=== PATIENT | male | born 1955 ===

== ENCOUNTER 2024-09-07 13:23 | Inpatient (IN) ==
[2024-09-07 14:04] LABS: Hematocrit (blood only) 29.1 % (42.0-52.0); Mean Corpuscular Hemoglobin 31.1 pg (25.0-34.0); Mean Corpuscular Hgb Conc 34.4 g/dL (32.0-36.0); Mean Corpuscular Volume 90.4 fL (80.0-100.0); RDW Coefficient of Variation 14.6 % (11.5-14.5); RDW Standard Deviation 47.3 fL (36.4-46.3); Red Blood Count 3.22 M/uL (4.70-6.10); White Blood Count 5.52 K/ul (4.8-10.8)
[2024-09-07 14:15] LABS: Albumin Level 3.8 gm/dl (3.4-5.0); Bilirubin Direct 0.3 mg/dl (0-0.2); Bilirubin,Total 0.5 mg/dl (0.2-1.0); Calcium 13.1 mg/dl (8.6-10.3); Creatinine Clr Calc Pharmacy 33.5 ml/min; Total Protein 8.9 gm/dl (6.0-8.3)
[2024-09-07] MEDS: SODIUM CHLORIDE 0.9% 1,000 ML IV ONE (14:23)
[2024-09-07 14:33] LABS: Basophils # (auto) 0.01 K/uL (0.00-0.20); Basophils % (auto) 0.2 %; Eosinophils # (auto) 0.03 K/uL (0.00-0.50); Eosinophils % (auto) 0.5 %; Immature Granulocytes % (auto) 1.8 %; Lymphocytes # (auto) 3.56 K/uL (1.20-3.40); Lymphocytes % (auto) 64.5 %; Monocytes # (auto) 0.37 K/uL (0.11-0.59); Monocytes % (auto) 6.7 %; Neutrophils # (auto) 1.45 K/uL (1.40-6.50); Neutrophils % (auto) 26.3 %; Nucleated RBC # (auto) 0.02 K/uL (0.00-0.12); Nucleated RBC % (auto) 0.4 %; Platelet Count 6 K/uL (130-400)
--- NOTE | 2024-09-07 14:48 | XRay Report ---
INDICATION: Shortness of breath. TECHNIQUE: Frontal radiograph of the chest. COMPARISON: None. FINDINGS: Low inspiratory depth. The cardiomediastinal silhouette and pulmonary vasculature appear within normal limits. Subsegmental atelectasis in the lung bases. No infiltrate, pleural effusion or pneumothorax. No acute osseous abnormality evident. IMPRESSION: No acute cardiopulmonary process. Electronically signed by Alex Ling 09-07-2024 2:46 PM
--- NOTE | 2024-09-07 15:26 | CT Scan Report ---
EXAM: CT Chest Abdomen and Pelvis Without Intravenous Contrast INDICATION: Right flank pain. Dizziness. Multiple myeloma. TECHNIQUE: Axial computed tomography images of the chest, abdomen and pelvis without intravenous contrast. Sagittal and coronal reformatted images were created and reviewed. This CT exam was performed using one or more of the following dose reduction techniques: automated exposure control, adjustment of the mA and/or kV according to patient size, and/or use of iterative reconstruction technique. COMPARISON: No relevant prior studies available. FINDINGS: Limitations: None. CHEST: Lungs and pleural spaces: No abnormality noted. No mass. No consolidation. No significant effusion. No pneumothorax. Heart: Mild cardiomegaly. Mediastinum: No abnormality noted. Thyroid: No abnormality noted. ABDOMEN: Liver: Normal size and contour. Hypodense typical of steatosis. No mass or ductal dilation. Gallbladder and bile ducts: Suspect small layering gallstones or sludge. The common bile duct is normal caliber without calcified stone. Pancreas: No pancreatic mass, calcification, inflammation or ductal dilation noted. Spleen: No significant abnormality noted. Adrenals: No significant abnormality noted. Kidneys and ureters: There is mild right hydroureteronephrosis. No stone. There is bilateral perinephric and renal cortical scarring. No urinary gas. No perinephric fluid. Stomach and bowel: No distension or mucosal thickening. No inflammation noted. PELVIS: Appendix: Well seen and appears normal. Bladder: Appears normal for the degree of filling. No stones or inflammation. No large mass. Masses may not be detected in the absence of opacification. Reproductive: No significant abnormality noted. CHEST, ABDOMEN and PELVIS: Intraperitoneal space: No free air. No significant fluid collection. Retroperitoneal space: No abnormality noted. No fluid collection. Bones/joints: There is a 2.8 x 2.0 cm lytic lesion in the right iliac bone with thinning of the cortex. No pathologic fracture noted. Mild degenerative changes noted in the spine. Soft tissues: No significant abnormality noted. Vasculature: There is diffuse atherosclerosis of the aorta and branches. There is severe coronary calcification. No aneurysm. Lymph nodes: No enlarged lymph nodes. IMPRESSION: 1. Mild right hydroureteronephrosis without stone. Consider recently passed stone or pyelonephritis. There is bilateral renal scarring. 2. Lytic lesion right iliac bone consistent with multiple myeloma. No pathologic fracture. 3. No acute abnormality in the thorax. 4. Suspect small layering gallstones or sludge. ACT 112: Negative or not required by law. Electronically signed by Lory La 09-07-2024 3:26 PM
--- NOTE | 2024-09-07 15:29 | CT Scan Report ---
EXAM: CT Head Without Intravenous Contrast INDICATION: Right flank pain and dizziness. TECHNIQUE: Axial computed tomography images of the head/brain without intravenous contrast. Sagittal and/or coronal reformats are provided. Sagittal and coronal reformatted images were created and reviewed. This CT exam was performed using one or more of the following dose reduction techniques: automated exposure control, adjustment of the mA and/or kV according to patient size, and/or use of iterative reconstruction technique. COMPARISON: No relevant prior studies available. FINDINGS: Limitations: None. Brain and extra-axial spaces: There is age appropriate cortical atrophy and chronic ischemic periventricular white matter hypodensity. No acute infarct, hemorrhage or mass noted. Bones/joints: Lytic lesion left temporal and frontal bones. No pathologic fracture noted. There are multiple small lytic lesions in the right calvarium. Soft tissues: No significant abnormality noted. Vasculature: No acute abnormality noted. Sinuses: There is an approximate 2 cm retention cyst or polyp in the left maxillary sinus. There is trace thickening right maxillary sinus. No sinus fluid. Mastoid air cells: No mastoid effusion. Orbits: No significant abnormality noted. IMPRESSION: 1. Cerebral atrophy. No acute changes. 2. Lytic myelomatous lesions noted in the skull particularly in the left frontal and parietal bones. ACT 112: Negative or not required by law. Electronically signed by Lory La 09-07-2024 3:28 PM
[2024-09-07] MEDS: SODIUM CHLORIDE 0.9% 1,000 ML IV SCH (15:47)
[2024-09-07] MEDS ORDERED: SODIUM CHLORIDE 0.9% 50 ML IV PRN (16:19)
[2024-09-07] MEDS ORDERED: SODIUM CHLORIDE 0.9% 100 ML IV PRN (16:19)
--- NOTE | 2024-09-07 16:43 | History & Physical Report ---
Date of Service September 07, 2024 Assessment & Plan (1) LAURI (acute kidney injury): (2) Abnormal CT scan: (3) Multiple myeloma: Plan Mr. Baeza is a 68 year old gentleman with past medical history remarkable for Multiple Myeloma undergoing active treatment s/p ASCT ~2023 (daratumumab, Velcade, dexamethasone), DMTII, HTN, HLD and GERD presented to [facility] ED due to flank pain and is admitted for management of thrombocytopenia, hypercalcemia, and LAURI. #Hypercalcemia #LAURI #Flank pain CT with perinephric stranding, ?infection likely contributing to symptoms Pyelonephritis? UA ordered Cefepime q12 empirically Potentially related to relaspe of MM given hypercalcemia and renal insufficiency trend ca q6 hours s/p zolendronic acid and calcitonin Hematology following IVF @ 200cc/hr Urology: ?infection v obstructive/stone passing, further imaging or intervention #Multiple myeloma, concern for relapse #Bicytopenia anemia likely iso MM, platelets 6 at this time s/p 1 U plt Trend labs, transfuse platelets <10 and hgb < 7 started on Decadron 40mg IV for <M & thrombocytopenia acyclovir bid held iso renal insufficency, resume as able #Insomnia ativan 0.5mg qhs #Diabetes Mellitus Type II Metformin 500mg BID, glipizide 5mg daily A1C ordered SSI #HTN lisinopril 10mg Holding iso LAURI Labetolol prn for SBP > 175mmhg #Depression Continue mirtazipine 15mg qhs continue escitalopram 20mg #GERD priolsec 40mg DVT ppx: Contraindicated SCDs iso thrombocytopenia and chemical ppx CI due to same Full code per discussion with patient Admission and Anticipated Discharge Date Admission Date: Time spent evaluating patient, direct bedside care, chart review, placing orders, interpretation of diagnostic studies, discussion with consultants, patient, and family members, as well as other required patient management activities is 75 minutes. History of Present Illness Chief Complaint: Flank pain Primary Care Provider: NO PCP Mr. Baeza is a 68 year old gentleman with past medical history remarkable for Multiple Myeloma undergoing active treatment s/p ASCT ~2023 (daratumumab, Velcade, dexamethasone), DMTII, HTN, HLD and GERD presented to [facility] ED due to flank pain. Patient states that flank pain started 2 days ago. He tried to "brace through it" but it became more notable. He denies dysuria or other urinary symptoms, but does note that he experienced dark urine. Ultimately, the flank pain became so severe he presented to ED. He denies fevers or chills, however at time of exam noted to have diaphoresis and pallor. Denies constipation, sob, palpitations, chest pain, or other acute concerns In the ED, vitals were notable for BP of 140-180s, HR of 80-90s and O2 sat of 96 on room air Imaging revealed mild hydroureteronephrosis without stone, bilateral perinephric stranding, right iliac lytic lesion ct head w/o bleed, multiple lytic lesions Labs with anemia 10, plt 6, Cr 2.38, glucose 241, calcium 13.1 EKG NSR ED interventions: 2L NS, platelets, calcitonin, zolendric acid, Decadron 40 IV Consultants: Hematology Patient to be admitted to PCU for further evaluation and management of LAURI, thrombocytopenia is Multiple Myeloma Allergies Allergy/AdvReac Type Severity Reaction Status Date / Time Penicillins Allergy Rash Verified 09/07/24 15:48 Home Medications Medication Instructions Recorded Confirmed Type acyclovir 200 mg capsule 400 mg BID 09/07/24 09/07/24 History escitalopram oxalate 20 mg tablet 20 mg DAILY 09/07/24 09/07/24 History glipizide 5 mg tablet, extended 5 mg PO DAILY 09/07/24 09/07/24 History release 24 hr lisinopril 10 mg tablet 10 mg DAILY 09/07/24 09/07/24 History lorazepam 0.5 mg tablet 0.5 mg PM 09/07/24 09/07/24 History metformin 500 mg tablet 500 mg BID 09/07/24 09/07/24 History mirtazapine 15 mg tablet 15 mg PM 09/07/24 09/07/24 History omeprazole 40 mg capsule,delayed 40 mg QAM 09/07/24 09/07/24 History release Past Med/Surg History Problem List (Updated 09/07/24 @ 18:54 by Belkys Morrison MD) Thrombocytopenia Hypercalcemia of malignancy Multiple myeloma Abnormal CT scan LAURI (acute kidney injury) Medical History (Updated 09/07/24 @ 18:54 by Belkys Morrison MD) Diabetes 1.5, managed as type 2 Depression GERD (gastroesophageal reflux disease) HLD (hyperlipidemia) Hypertension Social History Smoking Status: Never smoker Feels Safe at Home: Yes Review of Systems Review of Systems: All systems reviewed & are unremarkable except as noted in HPI & below Physical Exam Physical Exam: GENERAL APPEARANCE: AxOx4, ill appearing gentleman HEENT: NC, AT. MMM. EOMI, clear conjunctiva, oropharynx clear. NECK: Supple without lymphadenopathy. No stiffness or restricted ROM. HEART: Normal rate and regular rhythm, normal S1/S1, no m/r/g LUNGS: CTAB, moving air well. No crackles or wheezes are heard. ABDOMEN: Soft, nontender, nondistended with good bowel sounds heard. BACK: CVAT + BL. EXTREMITIES: Without cyanosis, clubbing or edema. NEUROLOGICAL: Grossly nonfocal. Alert and oriented, moving all 4 extremities. CN not formally tested but appear grossly intact. Skin: diaphoretic pallor Results & Data Results & Data Vital Signs (Past 12 Hours) Vital Signs Temp Pulse Pulse Resp BP BP Pulse Ox 09/07/24 15:15 91 H 20 149/83 H 95 09/07/24 15:11 90 09/07/24 15:06 89 31 H 95 09/07/24 14:45 133/73 09/07/24 14:15 87 L 09/07/24 14:09 92 H 17 145/71 H 95 09/07/24 13:27 36.6 C 95 H 16 144/82 H 95 O2 Del Method O2 Flow Rate 09/07/24 15:15 Room Air 09/07/24 15:11 09/07/24 15:06 Nasal Cannula 2 09/07/24 14:45 09/07/24 14:15 Room Air 09/07/24 14:09 Room Air 09/07/24 13:27 Room Air Laboratory Results Short CBC 09/07/24 Range/Units 13:41 WBC 5.52 (4.8-10.8) K/ul Hgb 10.0 L (14.0-18.0) g/dl Hct 29.1 L (42.0-52.0) % Plt Count 6 L* (130-400) K/uL BMP 09/07/24 13:41 Sodium 135 L Potassium 4.0 Chloride 100 Carbon Dioxide 24 BUN 38 H Creatinine 2.38 H Glucose 241 H Calcium 13.1 H* Liver Function 09/07/24 Range/Units 13:41 Total Bilirubin 0.5 (0.2-1.0) mg/dl Direct Bilirubin 0.3 H (0-0.2) mg/dl AST 23 (13-39) U/L ALT 9 (7-52) U/L Alkaline Phosphatase 83 (34-104) U/L Albumin 3.8 (3.4-5.0) gm/dl Diagnostic Findings Abdomen/Pelvis CT 09/07/24 14:22 EXAM: CT Chest Abdomen and Pelvis Without Intravenous Contrast INDICATION: Right flank pain. Dizziness. Multiple myeloma. TECHNIQUE: Axial computed tomography images of the chest, abdomen and pelvis without intravenous contrast. Sagittal and coronal reformatted images were created and reviewed. This CT exam was performed using one or more of the following dose reduction techniques: automated exposure control, adjustment of the mA and/or kV according to patient size, and/or use of iterative reconstruction technique. COMPARISON: No relevant prior studies available. FINDINGS: Limitations: None. CHEST: Lungs and pleural spaces: No abnormality noted. No mass. No consolidation. No significant effusion. No pneumothorax. Heart: Mild cardiomegaly. Mediastinum: No abnormality noted. Thyroid: No abnormality noted. ABDOMEN: Liver: Normal size and contour. Hypodense typical of steatosis. No mass or ductal dilation. Gallbladder and bile ducts: Suspect small layering gallstones or sludge. The common bile duct is normal caliber without calcified stone. Pancreas: No pancreatic mass, calcification, inflammation or ductal dilation noted. Spleen: No significant abnormality noted. Adrenals: No significant abnormality noted. Kidneys and ureters: There is mild right hydroureteronephrosis. No stone. There is bilateral perinephric and renal cortical scarring. No urinary gas. No perinephric fluid. Stomach and bowel: No distension or mucosal thickening. No inflammation noted. PELVIS: Appendix: Well seen and appears normal. Bladder: Appears normal for the degree of filling. No stones or inflammation. No large mass. Masses may not be detected in the absence of opacification. Reproductive: No significant abnormality noted. CHEST, ABDOMEN and PELVIS: Intraperitoneal space: No free air. No significant fluid collection. Retroperitoneal space: No abnormality noted. No fluid collection. Bones/joints: There is a 2.8 x 2.0 cm lytic lesion in the right iliac bone with thinning of the cortex. No pathologic fracture noted. Mild degenerative changes noted in the spine. Soft tissues: No significant abnormality noted. Vasculature: There is diffuse atherosclerosis of the aorta and branches. There is severe coronary calcification. No aneurysm. Lymph nodes: No enlarged lymph nodes. IMPRESSION: 1. Mild right hydroureteronephrosis without stone. Consider recently passed stone or pyelonephritis. There is bilateral renal scarring. 2. Lytic lesion right iliac bone consistent with multiple myeloma. No pathologic fracture. 3. No acute abnormality in the thorax. 4. Suspect small layering gallstones or sludge. ACT 112: Negative or not required by law. Electronically signed by Lory La 09-07-2024 3:[address] 09/07/24 14:23 EXAM: CT Chest Abdomen and Pelvis Without Intravenous Contrast INDICATION: Right flank pain. Dizziness. Multiple myeloma. TECHNIQUE: Axial computed tomography images of the chest, abdomen and pelvis without intravenous contrast. Sagittal and coronal reformatted images were created and reviewed. This CT exam was performed using one or more of the following dose reduction techniques: automated exposure control, adjustment of the mA and/or kV according to patient size, and/or use of iterative reconstruction technique. COMPARISON: No relevant prior studies available. FINDINGS: Limitations: None. CHEST: Lungs and pleural spaces: No abnormality noted. No mass. No consolidation. No significant effusion. No pneumothorax. Heart: Mild cardiomegaly. Mediastinum: No abnormality noted. Thyroid: No abnormality noted. ABDOMEN: Liver: Normal size and contour. Hypodense typical of steatosis. No mass or ductal dilation. Gallbladder and bile ducts: Suspect small layering gallstones or sludge. The common bile duct is normal caliber without calcified stone. Pancreas: No pancreatic mass, calcification, inflammation or ductal dilation noted. Spleen: No significant abnormality noted. Adrenals: No significant abnormality noted. Kidneys and ureters: There is mild right hydroureteronephrosis. No stone. There is bilateral perinephric and renal cortical scarring. No urinary gas. No perinephric fluid. Stomach and bowel: No distension or mucosal thickening. No inflammation noted. PELVIS: Appendix: Well seen and appears normal. Bladder: Appears normal for the degree of filling. No stones or inflammation. No large mass. Masses may not be detected in the absence of opacification. Reproductive: No significant abnormality noted. CHEST, ABDOMEN and PELVIS: Intraperitoneal space: No free air. No significant fluid collection. Retroperitoneal space: No abnormality noted. No fluid collection. Bones/joints: There is a 2.8 x 2.0 cm lytic lesion in the right iliac bone with thinning of the cortex. No pathologic fracture noted. Mild degenerative changes noted in the spine. Soft tissues: No significant abnormality noted. Vasculature: There is diffuse atherosclerosis of the aorta and branches. There is severe coronary calcification. No aneurysm. Lymph nodes: No enlarged lymph nodes. IMPRESSION: 1. Mild right hydroureteronephrosis without stone. Consider recently passed stone or pyelonephritis. There is bilateral renal scarring. 2. Lytic lesion right iliac bone consistent with multiple myeloma. No pathologic fracture. 3. No acute abnormality in the thorax. 4. Suspect small layering gallstones or sludge. ACT 112: Negative or not required by law. Electronically signed by Lory La 09-07-2024 3:25 PM Chest X-Ray 09/07/24 14:23 INDICATION: Shortness of breath. TECHNIQUE: Frontal radiograph of the chest. COMPARISON: None. FINDINGS: Low inspiratory depth. The cardiomediastinal silhouette and pulmonary vasculature appear within normal limits. Subsegmental atelectasis in the lung bases. No infiltrate, pleural effusion or pneumothorax. No acute osseous abnormality evident. IMPRESSION: No acute cardiopulmonary process. Electronically signed by Alex Ling 09-07-2024 2:[address] 09/07/24 14:23 EXAM: CT Head Without Intravenous Contrast INDICATION: Right flank pain and dizziness. TECHNIQUE: Axial computed tomography images of the head/brain without intravenous contrast. Sagittal and/or coronal reformats are provided. Sagittal and coronal reformatted images were created and reviewed. This CT exam was performed using one or more of the following dose reduction techniques: automated exposure control, adjustment of the mA and/or kV according to patient size, and/or use of iterative reconstruction technique. COMPARISON: No relevant prior studies available. FINDINGS: Limitations: None. Brain and extra-axial spaces: There is age appropriate cortical atrophy and chronic ischemic periventricular white matter hypodensity. No acute infarct, hemorrhage or mass noted. Bones/joints: Lytic lesion left temporal and frontal bones. No pathologic fracture noted. There are multiple small lytic lesions in the right calvarium. Soft tissues: No significant abnormality noted. Vasculature: No acute abnormality noted. Sinuses: There is an approximate 2 cm retention cyst or polyp in the left maxillary sinus. There is trace thickening right maxillary sinus. No sinus fluid. Mastoid air cells: No mastoid effusion. Orbits: No significant abnormality noted. IMPRESSION: 1. Cerebral atrophy. No acute changes. 2. Lytic myelomatous lesions noted in the skull particularly in the left frontal and parietal bones. ACT 112: Negative or not required by law. Electronically signed by Lory La 09-07-2024 3:28 PM Medications Administered Active Medications Generic Name Dose Route Start Last Admin Trade Name Freq PRN Reason Stop Dose Admin Sodium Chloride 1,000 mls @ 200 mls/hr 09/07/24 15:30 09/07/24 15:47 Nss IV 09/08/24 15:29 200 mls/hr .Q5H JAKI Administration
[2024-09-07] MEDS: HYDROmorphone INJ 1 MG/ML SYRINGE IV STA (17:15)
--- NOTE | 2024-09-07 17:16 | Oncology Consultation ---
Date of Consultation September 07, 2024 Assessment & Plan (1) Multiple myeloma: in my opinion the patient will need full restaging workup for his multiple myeloma again given the changes in his peripheral blood, severe thrombocytopenia platelet count of 6000/mcL. I will recommend an outpatient evaluation by his treating oncologist including a PET CT scan and a bone marrow biopsy to ascertain the burden of the disease as he may need modification in his treatment plan. Currently will not engage in any kind of diagnostic workup while the patient is here since he is already established with my colleague in [place]. I will try to obtain all the records from [place] to look at the recent labs. Will leave the bone marrow biopsy and a PET CT scan to be done with his treating oncologist once he is stabilized and discharged (2) Hypercalcemia of malignancy: . Creatinine clearance in the hospital was 33.5. I have recommended zoledronic acid 3 mg. Reportedly the patient has never been on any kind of bone modifying agents. Given the severe hypercalcemia will recommend zoledronic acid 3 mg 1 dose to be given in an IV for along with IV hydration and calcitonin to lower the calcium level. He will obviously need to be in telemetry given the severity of the hypercalcemia. I have also recommended dexamethasone 40 mg p.o. given the severe thrombocytopenia as well as hypercalcemia (3) Thrombocytopenia: patient has severe thrombocytopenia with a platelet count of 6000/mcL. At this point my recommendation is going to be transfusing platelets to maintain a platelet count greater than 10,000/mcL or if he is actively bleeding. I have also recommended Decadron 40 mg p.o. for 3 days in case there is an immune component of the severe thrombocytopenia. However the patient will need a restaging bone marrow biopsy upon discharge when he sees one of my colleagues in [place]. Plan Thank you for this interesting oncological consult. I will try to obtain all the medical records for this particular patient. Hematology will continue to follow the patient make appropriate recommendations. History of Present Illness Reason for Consultation: Multiple myeloma hypercalcemia of malignancy acute kidney injury History of Present Illness patient is a very pleasant 68-year-old gentleman who is a resident of [place], currently under the treatment with my colleagues in [place] for multiple myeloma. He was in [place] for the [facility] to be closer to his son, experienced severe abdominal pain. He was brought to the ER, where he had a CT of the abdomen and pelvis which showed lytic lesions in the bones, hydronephrosis with concerns for recently passed urinary stone. CT of the chest revealed the same. On admission his calcium was severely elevated at 13.1. his albumin level was 3.8. Total protein was 8.9. Apparently he tells me that he goes weekly for infusions to his oncologist and reports that he is on daratumumab, Velcade, dexamethasone. He had an autologous stem cell transplant about 2 years ago. At this point I do not have any of the records from his oncologist office so all of my information was derived verbally. Other labs reviewed severe thrombocytopenia with a platelet count of 6000/mcL and a hemoglobin of 10.2 g/dL . the patient tells me that he is currently in remission. Allergies Allergy/AdvReac Type Severity Reaction Status Date / Time Penicillins Allergy Rash Verified 09/07/24 15:48 Home Medications Medication Instructions Recorded Confirmed Type acyclovir 200 mg capsule 400 mg BID 09/07/24 09/07/24 History escitalopram oxalate 20 mg tablet 20 mg DAILY 09/07/24 09/07/24 History glipizide 5 mg tablet, extended 5 mg PO DAILY 09/07/24 09/07/24 History release 24 hr lisinopril 10 mg tablet 10 mg DAILY 09/07/24 09/07/24 History lorazepam 0.5 mg tablet 0.5 mg PM 09/07/24 09/07/24 History metformin 500 mg tablet 500 mg BID 09/07/24 09/07/24 History mirtazapine 15 mg tablet 15 mg PM 09/07/24 09/07/24 History omeprazole 40 mg capsule,delayed 40 mg QAM 09/07/24 09/07/24 History release Patient History Social History Smoking Status: Never smoker Feels Safe at Home: Yes Review of Systems Review of Systems: Severe pain, fatigue, nausea Constitutional: as per Subjective / HPI Eyes: as per Subjective / HPI Ear, Nose, Mouth, Throat: as per Subjective / HPI Respiratory: as per Subjective / HPI Cardiovascular: as per Subjective / HPI Gastrointestinal: as per Subjective / HPI Genitourinary: + as per Subjective / HPI Musculoskeletal: as per Subjective / HPI Integumentary: as per Subjective / HPI Neurologic: as per Subjective / HPI Psychiatric: as per Subjective / HPI Endocrine: as per Subjective / HPI Hematologic / Lymphatic: as per Subjective / HPI Physical Exam Constitutional: WD/WN, vitals as above Eyes: PERRL, conjunctivae normal, anicteric sclerae ENMT: external ear and nose normal, oropharynx normal Neck: trachea midline, no thyromegaly Respiratory: normal respiratory effort, lungs clear to auscultation Cardiovascular: RRR, no murmur, no edema Gastrointestinal (Abdomen): normal bowel sounds, soft, nontender, no hepatosplenomegaly Musculoskeletal: no cyanosis or clubbing, extremities motor strength 5/5 Skin: no rashes, warm and dry Neurologic: patellar DTR's 2+ bilat, sensation intact Psychiatric: A+Ox3, euthymic affect Results & Data Vital Signs (Past 12 Hours) Vital Signs Temp Pulse Pulse Resp BP BP Pulse Ox 09/07/24 17:00 93 H 20 184/83 H 96 09/07/24 15:15 91 H 20 149/83 H 95 09/07/24 15:11 90 09/07/24 15:06 89 31 H 95 09/07/24 14:45 133/73 09/07/24 14:15 87 L 09/07/24 14:09 92 H 17 145/71 H 95 09/07/24 13:27 36.6 C 95 H 16 144/82 H 95 O2 Del Method O2 Flow Rate 09/07/24 17:00 Room Air 09/07/24 15:15 Room Air 09/07/24 15:11 09/07/24 15:06 Nasal Cannula 2 09/07/24 14:45 09/07/24 14:15 Room Air 09/07/24 14:09 Room Air 09/07/24 13:27 Room Air
[2024-09-07 17:29] LABS: Ferritin 360.8 ng/ml (8-388)
[2024-09-07 17:39] LABS: Folate (Folic Acid),Ser orPlas 4.75 ng/ml (>5.38)
[2024-09-07] MEDS: CALCITONIN SALMON 400 UNITS/2 ML SQ ONE (18:11)
[2024-09-07 18:35] LABS: Appearance Urine Cloudy (Clear); Bacteria Urine Automated None Seen (None Seen); Bilirubin Urine Negative (Negative); Blood Urine 3+ (Negative); Color Urine Orange; Epithelial Cell Urine Auto 0-2 /hpf (0-2); Glucose Urine UA 1+ (Negative); Ketones Urine Trace (Negative); Leukocyte Esterase Urine Negative (Negative); Nitrite Urine Negative (Negative); Protein Urine 2+ (Negative); RBC Urine Automated >20 /hpf (0-2); Specific Gravity Urine 1.021 (1.000-1.030); Urobilinogen Urine Negative (Negative); WBC Urine Automated 0-5 /hpf (0-5)
[2024-09-07] MEDS ORDERED: POLYETHYLENE (MIRALAX) 17 GM PACK PO PRN (18:39)
[2024-09-07] MEDS ORDERED: LABETALOL HCL IV 5 MG/ML 20ML IV PRN (18:39)
[2024-09-07] MEDS ORDERED: GLUCOSE 40% GEL 15 GM TUBE PO PRN (18:55)
[2024-09-07] MEDS ORDERED: GLUCAGON FOR INJ 1 MG VIAL SQ PRN (18:55)
[2024-09-07] MEDS ORDERED: CARBOHYDRATES FOR HYPOGLYCEMIA PO PRN (18:55)
[2024-09-07] MEDS ORDERED: GLUCOSE 10 TAB/TUBE PO PRN (18:55)
[2024-09-07] MEDS ORDERED: DEXTROSE 50% 50 ML SYRINGE IV PRN (18:55)
--- NOTE | 2024-09-07 19:04 | Emergency Department Note ---
Impression & Plan Thrombocytopenia, LAURI (acute kidney injury), Multiple myeloma, Hypercalcemia ED Provider Note CHIEF COMPLAINT: Brown urine HISTORY OF PRESENT ILLNESS: This 68-year-old male patient with PMH of multiple myeloma presents to the emergency department with complaints of brown urine. Patient's son is at the bedside and states he resides in [place], is treated at [facility]. He drove to [place] for the weekend to visit. Patient has apparently had multiple falls in the last week, he denies hitting his head or passing out. He has been able to get himself up each time. His son states he would have never let him drive to [place] if he knew he were this ill. The patient denies any fevers, vomiting or diarrhea. He states he has been getting his chemotherapy weekly. REVIEW OF SYSTEMS: A review of systems was performed with positives and pertinent negatives listed in the history of present illness. 10 systems were reviewed and are otherwise negative. ALLERGIES: see below MEDICATIONS: see below PMH: see below SOCIAL HISTORY: see below DDx: Dehydration, infectious etiology, kidney stone, renal failure, medication effect, among others. PHYSICAL EXAM: Vital signs reviewed. General: Chronically ill-appearing, slightly pale 68-year-old male HEENT: No scleral icterus, pale conjunctiva, PERRLA, neck supple. Moist mucous membranes. Cardiovascular: Regular rate and rhythm, no extra sounds. Pulmonary: Clear to auscultation bilaterally, normal work of breathing. Abdomen: Soft, nontender, nondistended, positive bowel sounds. Musculoskeletal: Atraumatic, no peripheral edema. Neurologic: Patient awake alert and oriented x 3, speech is clear. Skin: Warm, renetta, abrasion/ecchymosis to the mid left thoracic back without significant tenderness. EMERGENCY DEPARTMENT COURSE/MDM: This patient was evaluated and appeared to be in no significant distress. Patient was noted to be slightly hypertensive with heart rate in the 90s. IV access was obtained and laboratory work was drawn. Patient was placed on the slumber room attendant and noted to be in a sinus rhythm. EKG reveals no evidence of acute ischemic change. IV fluids were initiated. Laboratory work reveals a platelet count of 6000. Creatinine is 2.38 with a calcium of 13.1. Abdomen pelvis CT was performed and is significant for right hydroureteronephrosis, lytic lesion noted in the right iliac bone without acute fracture. Head CT reveals lytic lesions in the skull without evidence of acute intracranial pathology. Patient's case was discussed with the hospitalist service who requested hematology/oncology's input. Dr. Portillo was consulted and evaluated the patient in the emergency department. Patient was consented for blood product transfusion. Platelets were ordered. Case was discussed with Dr. Morrison was again is accepted the patient for admission and further management. The patient and his son are aware of the plan and agreed. MONITORING: An order for cardiac monitoring was placed and the patient is noted to be in a normal sinus rhythm at 92 beats per minute. RADIOLOGY: Chest x-ray to my interpretation reveals no evidence of focal lung consolidation or failure. CT imaging of the head per radiology: IMPRESSION: 1. Cerebral atrophy. No acute changes. 2. Lytic myelomatous lesions noted in the skull particularly in the left frontal and parietal bones. CT of the abdomen and pelvis: IMPRESSION: 1. Mild right hydroureteronephrosis without stone. Consider recently passed stone or pyelonephritis. There is bilateral renal scarring. 2. Lytic lesion right iliac bone consistent with multiple myeloma. No pathologic fracture. 3. No acute abnormality in the thorax. 4. Suspect small layering gallstones or sludge. EKG: To my interpretation normal sinus rhythm at [address] abnormality, QTc of 437. No PVC, no PAC. DISPOSITION: Admission I have personally spent greater than 40 minutes of critical care time in the direct management of this patient. This includes bedside care, interpretation of diagnostic studies, and testing, discussion with consultants, patient, and family members, and other required patient management activities. This 40 minutes is in excess of all separately billable procedures. Past Med/Surg History Problem List (Updated 09/13/24 @ 22:16 by Katt Mohan MD) Hypercalcemia (Acute) Gallstones Abdominal pain Right ureteral calculus Hydronephrosis, right Thrombocytopenia (Acute) Hypercalcemia of malignancy Multiple myeloma (Acute) Abnormal CT scan LAURI (acute kidney injury) (Acute) Medical History Diabetes 1.5, managed as type 2 Depression GERD (gastroesophageal reflux disease) HLD (hyperlipidemia) Hypertension Social History Smoking Status: Never smoker Hx Alcohol Use: No Hx Substance Use: No Preferred Language: Lebanese Communication Ability: Effective Hand Violin Maker Required: No Beliefs That Will Affect Care: None Current Living Situation: Family Feels Safe at Home: Yes Assistive Devices: None Allergies Allergies Allergy/AdvReac Type Severity Reaction Status Date / Time Penicillins Allergy Rash Verified 09/07/24 15:48 Home Meds Home Medications Medication Instructions Recorded Confirmed acyclovir 200 mg capsule 400 mg BID 09/07/24 09/07/24 escitalopram oxalate 20 mg tablet 20 mg DAILY 09/07/24 09/07/24 glipizide 5 mg tablet, extended 5 mg PO DAILY 09/07/24 09/07/24 release 24 hr lorazepam 0.5 mg tablet 0.5 mg PM 09/07/24 09/07/24 metformin 500 mg tablet 500 mg BID 09/07/24 09/07/24 mirtazapine 15 mg tablet 15 mg PM 09/07/24 09/07/24 omeprazole 40 mg capsule,delayed 40 mg QAM 09/07/24 09/07/24 release Previous Rx's Medication Instructions Recorded cyanocobalamin (vitamin B-12) 500 1,000 mcg (2 x 500 mcg) PO QAM #30 09/12/24 mcg tablet tabs folic acid 1 mg tablet 1 mg PO QAM #30 tabs 09/12/24 tamsulosin 0.4 mg capsule 0.4 mg PO QAM #30 caps 09/12/24 Results & Data (ED) Vital Signs Vital Signs - 24 hr 09/07/24 13:27 09/07/24 14:09 09/07/24 14:15 Temperature 36.6 C Temperature Source Oral Pulse Rate 95 H Pulse Rate [Apical] 92 H Pulse Rate from SpO2 Sensor Pulse Rhythm [Apical] Regular Pulse Strength [Apical] Normal Respiratory Rate 16 17 Respiratory Effort / Characteristics Non-Labored Spontaneous Non-Labored Spontaneous Respiratory Depth Normal Normal Respiratory Pattern Regular Blood Pressure 144/82 H Blood Pressure [Right Arm] 145/71 H Blood Pressure Mean 102 Blood Pressure Mean [Right Arm] 95 Blood Pressure Position [Right Arm] Pulse Oximetry 95 95 87 L Oxygen Delivery Method Room Air Room Air Room Air Oxygen Flow Rate Sepsis Recent Fever Within 48 Hours No Sepsis New/Unexplained Change in Mental Status N/A Sepsis Action Taken by Nursing No Action Required Oxygen Flow Rate - Titration 2 Pulse Oximetry Post Tiitration 94 09/07/24 14:45 09/07/24 15:06 02/09/25 15:11 Temperature Temperature Source Pulse Rate 89 90 Pulse Rate [Apical] Pulse Rate from SpO2 Sensor 88 Pulse Rhythm [Apical] Pulse Strength [Apical] Respiratory Rate 31 H Respiratory Effort / Characteristics Respiratory Depth Respiratory Pattern Blood Pressure 133/73 Blood Pressure [Right Arm] Blood Pressure Mean 101 Blood Pressure Mean [Right Arm] Blood Pressure Position [Right Arm] Pulse Oximetry 95 Oxygen Delivery Method Nasal Cannula Oxygen Flow Rate 2 Sepsis Recent Fever Within 48 Hours Sepsis New/Unexplained Change in Mental Status Sepsis Action Taken by Nursing Oxygen Flow Rate - Titration Pulse Oximetry Post Tiitration 09/07/24 15:15 Temperature Temperature Source Pulse Rate Pulse Rate [Apical] 91 H Pulse Rate from SpO2 Sensor Pulse Rhythm [Apical] Regular Pulse Strength [Apical] Normal Respiratory Rate 20 Respiratory Effort / Characteristics Non-Labored Spontaneous Respiratory Depth Normal Respiratory Pattern Regular Blood Pressure Blood Pressure [Right Arm] 149/83 H Blood Pressure Mean Blood Pressure Mean [Right Arm] 105 Blood Pressure Position [Right Arm] Sitting Pulse Oximetry 95 Oxygen Delivery Method Room Air Oxygen Flow Rate Sepsis Recent Fever Within 48 Hours Sepsis New/Unexplained Change in Mental Status Sepsis Action Taken by Nursing Oxygen Flow Rate - Titration Pulse Oximetry Post Tiitration Home Medications Current Medication List: was personally reviewed by me Laboratory Data Attestation: I reviewed the patient's lab results. 09/12/24 10:45 09/12/24 10:45 Lab Results 09/07/24 09/07/24 Range/Units 13:41 15:05 WBC 5.52 (4.8-10.8) K/ul RBC 3.22 L (4.70-6.10) M/uL Hgb 10.0 L (14.0-18.0) g/dl Hct 29.1 L (42.0-52.0) % MCV 90.4 (80.0-100.0) fL MCH 31.1 (25.0-34.0) pg MCHC 34.4 (32.0-36.0) g/dL RDW Std Deviation 47.3 H (36.4-46.3) fL RDW Coeff of Sadia 14.6 H (11.5-14.5) % Plt Count 6 L* (130-400) K/uL Immature Gran % (Auto) 1.8 % Neut % (Auto) 26.3 % Lymph % (Auto) 64.5 % [place] % (Auto) 6.7 % Eos % (Auto) 0.5 % Baso % (Auto) 0.2 % Neut # (Auto) 1.45 (1.40-6.50) K/uL Lymph # (Auto) 3.56 H (1.20-3.40) K/uL [place] # (Auto) 0.37 (0.11-0.59) K/uL Eos # (Auto) 0.03 (0.00-0.50) K/uL Baso # (Auto) 0.01 (0.00-0.20) K/uL Immature Gran # (Auto) 0.10 (0.01-0.20) K/uL Absolute Nucleated RBC 0.02 (0.00-0.12) K/uL Nucleated RBC % (auto) 0.4 % Sodium 135 L (136-145) mmol/L Potassium 4.0 (3.5-5.1) mmol/L Chloride 100 (98-107) mmol/L Carbon Dioxide 24 (21-32) mmol/L Anion Gap 11 (3-11) BUN 38 H (6-23) mg/dl Creatinine 2.38 H (0.6-1.4) mg/dl Est Cr Clr Drug Dosing 33.5 ml/min eGFR 29.32 BUN/Creatinine Ratio 16.0 (10-20) Glucose 241 H (70-99(Fasting)) mg/dl Estimat Average Glucose 226 mg/dl Hemoglobin A1c 9.5 H (4.5-5.6) % Calcium 13.1 H* (8.6-10.3) mg/dl Iron 79 (35-175) mcg/dl TIBC 287 (250-450) mcg/dl Transferrin 205 (200-360) mg/dl Transferrin % Sat 28 (20-50) % Ferritin 360.8 (8-388) ng/ml Total Bilirubin 0.5 (0.2-1.0) mg/dl Direct Bilirubin 0.3 H (0-0.2) mg/dl AST 23 (13-39) U/L ALT 9 (7-52) U/L Alkaline Phosphatase 83 (34-104) U/L Total Protein 8.9 H (6.0-8.3) gm/dl Albumin 3.8 (3.4-5.0) gm/dl Vitamin B12 139 L (180-914) pg/ml Folate 4.75 L (>5.38) ng/ml PTH Intact 4.9 L (12.0-88.0) pg/ml Blood Type O Negative Antibody Screen POSITIVE A Antibody Identification Panagglutinin due to drug Antibody ID Comment Cancelled Administered Medications Discontinued Medications Acetaminophen (Acetaminophen 325 Mg Tab) 650 mg PO Q4H PRN PRN Reason: Pain or Fever Stop: 10/07/24 18:38 Last Admin: 09/11/24 16:20 Dose: 650 mg Documented By: REAGAN Calcitonin Dahlen (Calcitonin Dahlen 400 Units/2 Ml) 4 units SQ NOW STA Stop: 09/07/24 16:47 Last Admin: 09/08/24 07:09 Dose: Not Given Documented By: LELAND Calcitonin Dahlen (Calcitonin Dahlen 400 Units/2 Ml) 365 units SQ ONE ONE Stop: 09/07/24 17:31 Last Admin: 09/07/24 18:11 Dose: 365 units Documented By: ERNIE Cyanocobalamin (Cyanocobalamin (B-12) 500 Mcg Tablet) 1,000 mcg PO QAM [facility] Stop: 10/08/24 08:59 Last Admin: 09/12/24 08:23 Dose: 1,000 mcg Documented By: Admin: 09/11/24 09:17 Dose: 1,000 mcg Documented By: Admin: 09/10/24 08:15 Dose: 1,000 mcg Documented By: Admin: 09/09/24 08:09 Dose: 1,000 mcg Documented By: Admin: 09/08/24 09:04 Dose: 1,000 mcg Documented By: LELAND Dexamethasone (Dexamethasone 4 Mg Tab) 40 mg PO Q24H [facility] Stop: 09/09/24 19:01 Last Admin: 09/09/24 18:16 Dose: 40 mg Documented By: Admin: 09/08/24 18:18 Dose: 40 mg Documented By: Admin: 09/07/24 21:48 Dose: 40 mg Documented By: TIMOTHY Dexamethasone Sodium Phosphate (DexamethasonePf 10 Mg/Ml Vial) 40 mg IV Q24H JAKI Stop: 09/09/24 17:01 Last Admin: 09/08/24 07:09 Dose: Not Given Documented By: LELAND Escitalopram Oxalate (Escitalopram Oxalate 20 Mg Tab) 20 mg PO DAILY [facility] Stop: 10/08/24 08:59 Last Admin: 09/12/24 08:23 Dose: 20 mg Documented By: Admin: 09/11/24 16:18 Dose: 20 mg Documented By: Admin: 09/10/24 08:16 Dose: 20 mg Documented By: Admin: 09/09/24 08:07 Dose: 20 mg Documented By: Admin: 09/08/24 09:04 Dose: 20 mg Documented By: LELAND Folic Acid (Folic Acid 1 Mg Tab) 1 mg PO QAM JAKI Stop: 10/08/24 08:59 Last Admin: 09/12/24 08:23 Dose: 1 mg Documented By: Admin: 09/11/24 09:18 Dose: 1 mg Documented By: Admin: 09/10/24 08:16 Dose: 1 mg Documented By: Admin: 09/09/24 08:09 Dose: 1 mg Documented By: Admin: 09/08/24 09:04 Dose: 1 mg Documented By: LELAND Hydromorphone HCl (Hydromorphone Inj 1 Mg/Ml Syringe) 1 mg IV Q6H PRN PRN Reason: Pain Stop: 09/21/24 16:53 Last Admin: 09/07/24 19:46 Dose: 1 mg Documented By: TIMOTHY Hydromorphone HCl (Hydromorphone Inj 1 Mg/Ml Syringe) 1 mg IV NOW STA Stop: 09/07/24 16:55 Last Admin: 09/07/24 17:15 Dose: 1 mg Documented By: ERNIE Sodium Chloride (Nss) 1,000 mls @ 999 mls/hr IV .Q1H1M ONE Stop: 09/07/24 15:21 Last Infusion: 09/07/24 15:20 Dose: Infused Documented By: Admin: 09/07/24 14:23 Dose: 999 mls/hr Documented By: SANYA Sodium Chloride (Nss) 1,000 mls @ 200 mls/hr IV .Q5H JAKI Stop: 09/08/24 06:29 Last Infusion: 09/08/24 05:30 Dose: Infused Documented By: Admin: 09/08/24 00:00 Dose: 200 mls/hr Documented By: Infusion: 09/07/24 23:44 Dose: Infused Documented By: Admin: 09/07/24 18:44 Dose: 200 mls/hr Documented By: Infusion: 09/07/24 18:44 Dose: Infused Documented By: Admin: 09/07/24 15:47 Dose: 200 mls/hr Documented By: ERNIE Parenteral Electrolytes (Plasma-Lyte A Ph 7.4) 1,000 mls @ 125 mls/hr IV .Q8H JAKI Stop: 09/08/24 16:44 Last Admin: 09/08/24 07:08 Dose: Not Given Documented By: LELAND Cefepime HCl (Maxipime 2000mg) 2,000 mg in 20 mls @ 5 mls/min IV Q12H JAKI; Protocol Stop: 09/09/24 18:59 Last Admin: 09/09/24 06:06 Dose: 5 mls/min Documented By: Admin: 09/08/24 18:18 Dose: 5 mls/min Documented By: Admin: 09/08/24 06:28 Dose: 5 mls/min Documented By: Admin: 09/07/24 19:48 Dose: 5 mls/min Documented By: TIMOTHY Zoledronic Acid 3 mg/ Sodium (Chloride) 103.75 mls @ 410 mls/hr IV ONE ONE; Protocol Stop: 09/07/24 17:30 Last Infusion: 09/07/24 19:57 Dose: Infused Documented By: Admin: 09/07/24 19:41 Dose: 410 mls/hr Documented By: TIMOTHY Magnesium Sulfate/Dextrose (Magnesium Sulfate / D5w) 1 gm in 100 mls @ 50 mls/hr IV Q2H [facility] Stop: 09/08/24 11:59 Last Infusion: 09/08/24 12:02 Dose: Infused Documented By: Admin: 09/08/24 10:02 Dose: 50 mls/hr Documented By: Infusion: 09/08/24 10:02 Dose: Infused Documented By: Admin: 09/08/24 08:15 Dose: 50 mls/hr Documented By: LELAND Insulin Human Regular 9 units/ (Syringe) 9 mls @ 30 mls/min IV NOW ONE Stop: 09/08/24 16:46 Last Admin: 09/08/24 17:26 Dose: 30 mls/min Documented By: LELAND Co-signed By: VALERIO Sincalide 1.8 mcg/ Sodium (Chloride) 101.8 mls @ 200 mls/hr IV ONE ONE Stop: 09/09/24 12:45 Last Admin: 09/09/24 15:58 Dose: Not Given Documented By: LELAND Insulin Aspart (Insulin Aspart Per Unit Charge) 0 units SC ACHS JAKI Stop: 10/07/24 20:59 Last Admin: 09/12/24 17:41 Dose: 2 units Documented By: GPF Co-signed By: ALNNY Admin: 09/12/24 12:16 Dose: Not Given Documented By: Admin: 09/12/24 09:46 Dose: 4 units Documented By: AK Co-signed By: MARCOS Admin: 09/11/24 20:35 Dose: Not Given Documented By: Admin: 09/11/24 17:33 Dose: 5 units Documented By: EP Co-signed By: OBEY Admin: 09/11/24 12:20 Dose: 7 units Documented By: EP Co-signed By: OBEY Admin: 09/11/24 09:08 Dose: 3 units Documented By: REAGAN Co-signed By: OBEY Admin: 09/10/24 21:17 Dose: 3 units Documented By: NIKKO Co-signed By: RENAN Admin: 09/10/24 17:43 Dose: 4 units Documented By: EP Co-signed By: OBEY Admin: 09/10/24 12:52 Dose: 11 units Documented By: REAGAN Co-signed By: BALWINDER Admin: 09/10/24 08:14 Dose: 24 units Documented By: EP Co-signed By: OBEY Admin: 09/09/24 21:19 Dose: 5 units Documented By: NIKKO Co-signed By: JACOB Admin: 09/09/24 18:14 Dose: 10 units Documented By: VALERIO Co-signed By: LELAND Admin: 09/09/24 14:12 Dose: 9 units Documented By: VALERIO Co-signed By: LELAND Admin: 09/09/24 08:06 Dose: 7 units Documented By: VALERIO Co-signed By: LELAND Admin: 09/08/24 20:32 Dose: 6 units Documented By: TIMOTHY Co-signed By: KATLYN Admin: 09/08/24 17:25 Dose: 11 units Documented By: LELAND Co-signed By: VALERIO Admin: 09/08/24 12:09 Dose: 16 units Documented By: LELAND Co-signed By: DINESH Admin: 09/08/24 09:10 Dose: 7 units Documented By: LELAND Co-signed By: VALERIO Admin: 09/07/24 21:49 Dose: 4 units Documented By: TIMOTHY Co-signed By: KATLYN Insulin Aspart (Insulin Aspart Per Unit Charge) 0 units SC 0000,0400 [facility] Stop: 09/09/24 04:01 Last Admin: 09/09/24 04:28 Dose: 5 units Documented By: TIMOTHY Co-signed By: LUZ MARINA Admin: 09/09/24 00:12 Dose: 7 units Documented By: TIMOTHY Co-signed By: MAVIS Insulin Glargine (Lantus Per Unit Charge) 5 units SQ QPM [facility] Stop: 10/07/24 20:59 Last Admin: 09/07/24 21:49 Dose: 5 units Documented By: TIMOTHY Co-signed By: KATLYN Insulin Glargine (Lantus Per Unit Charge) 15 units SC ONE ONE Stop: 09/08/24 09:01 Last Admin: 09/08/24 09:11 Dose: 15 units Documented By: LELAND Co-signed By: VALERIO Insulin Glargine (Lantus Per Unit Charge) 20 units SC ONE ONE Stop: 09/08/24 16:46 Last Admin: 09/08/24 17:26 Dose: 20 units Documented By: LELAND Co-signed By: VALERIO Insulin Glargine (Lantus Per Unit Charge) [facility] Stop: 10/09/24 08:59 Last Admin: 09/10/24 08:14 Dose: 30 units Documented By: EP Co-signed By: OBEY Admin: 09/09/24 09:09 Dose: 30 units Documented By: LELAND Co-signed By: VALERIO Insulin Glargine (Lantus Per Unit Charge) 0 units SC [facility]; Protocol Stop: 10/09/24 20:59 Last Admin: 09/09/24 21:19 Dose: 20 units Documented By: NIKKO Co-signed By: JACOB Insulin Glargine (Lantus Per Unit Charge) 0 units SC [facility]; Protocol Stop: 10/10/24 20:59 Last Admin: 09/11/24 20:35 Dose: Not Given Documented By: Admin: 09/10/24 21:18 Dose: 5 units Documented By: NIKKO Co-signed By: LMH Labetalol HCl (Labetalol Hcl Iv 5 Mg/Ml 20ml) 5 mg IV NOW STA Stop: 09/07/24 18:47 Last Admin: 09/07/24 19:55 Dose: 5 mg Documented By: TIMOTHY Lidocaine (Lidocaine 5% 1 Patch) 1 patch TD QAM JAKI Stop: 10/08/24 08:59 Last Admin: 09/12/24 09:47 Dose: Not Given Documented By: Admin: 09/11/24 12:20 Dose: Not Given Documented By: Admin: 09/10/24 09:42 Dose: Not Given Documented By: Admin: 09/09/24 10:58 Dose: Not Given Documented By: Admin: 09/08/24 10:39 Dose: 1 patch Documented By: LELAND Lidocaine (Lidocaine 5% 1 Patch) 1 patch TD ONE ONE Stop: 09/07/24 17:31 Last Admin: 09/07/24 19:42 Dose: 1 patch Documented By: TIMOTHY Lorazepam (Lorazepam 0.5 Mg Tab) 0.5 mg PO PM JAKI Stop: 10/07/24 20:59 Last Admin: 09/07/24 21:49 Dose: 0.5 mg Documented By: TIMOTHY Lorazepam (Lorazepam 0.5 Mg Tab) 0.5 mg PO PM PRN PRN Reason: insomnia Stop: 10/07/24 20:59 Last Admin: 09/11/24 20:34 Dose: 0.5 mg Documented By: Admin: 09/10/24 21:16 Dose: 0.5 mg Documented By: Admin: 09/09/24 21:22 Dose: 0.5 mg Documented By: Admin: 09/08/24 22:00 Dose: 0.5 mg Documented By: TIMOTHY Lorazepam (Lorazepam 0.5 Mg Tab) 0.25 mg PO NOW STA Stop: 09/10/24 00:04 Last Admin: 09/10/24 00:16 Dose: 0.25 mg Documented By: NIKKO Lorazepam (Lorazepam 2 Mg/1 Ml Vial) 0.25 mg IV NOW STA Stop: 09/10/24 02:39 Last Admin: 09/10/24 03:24 Dose: 0.25 mg Documented By: NIKKO Mirtazapine (Mirtazapine Tab 15 Mg Tab) 15 mg PO PM JAKI Stop: 10/07/24 20:59 Last Admin: 09/11/24 20:34 Dose: 15 mg Documented By: Admin: 09/10/24 21:17 Dose: 15 mg Documented By: Admin: 09/09/24 21:23 Dose: 15 mg Documented By: Admin: 09/08/24 20:32 Dose: 15 mg Documented By: Admin: 09/07/24 21:49 Dose: 15 mg Documented By: TIMOTHY Miscellaneous (Remove Lidoderm Patch) 1 each N/A DAILY@2100 [facility] Stop: 10/07/24 20:59 Last Admin: 09/11/24 20:35 Dose: Not Given Documented By: Admin: 09/10/24 21:16 Dose: Not Given Documented By: Admin: 09/09/24 21:22 Dose: Not Given Documented By: Admin: 09/08/24 20:33 Dose: 1 each Documented By: Admin: 09/07/24 21:41 Dose: Not Given Documented By: TIMOTHY Ondansetron HCl (Ondansetron Inj 2 Mg/Ml 2 Ml Vial) 4 mg IV Q6H PRN PRN Reason: Nausea Stop: 10/07/24 18:38 Last Admin: 09/07/24 19:46 Dose: 4 mg Documented By: TIMOTHY Pantoprazole Sodium (Pantoprazole 40 Mg Tab) 40 mg PO [facility] Stop: 10/11/24 08:59 Last Admin: 09/12/24 08:24 Dose: 40 mg Documented By: Admin: 09/11/24 16:18 Dose: 40 mg Documented By: REAGAN Tamsulosin HCl (Tamsulosin Hcl 0.4 Mg Cap) 0.4 mg PO [facility] Stop: 10/10/24 15:09 Last Admin: 09/12/24 08:24 Dose: 0.4 mg Documented By: Admin: 09/11/24 09:19 Dose: 0.4 mg Documented By: Admin: 09/10/24 17:07 Dose: 0.4 mg Documented By: EP Imaging Data Radiologist's Impression: Abdomen/Pelvis CT 09/07/24 14:22 EXAM: CT Chest Abdomen and Pelvis Without Intravenous Contrast INDICATION: Right flank pain. Dizziness. Multiple myeloma. TECHNIQUE: Axial computed tomography images of the chest, abdomen and pelvis without intravenous contrast. Sagittal and coronal reformatted images were created and reviewed. This CT exam was performed using one or more of the following dose reduction techniques: automated exposure control, adjustment of the mA and/or kV according to patient size, and/or use of iterative reconstruction technique. COMPARISON: No relevant prior studies available. FINDINGS: Limitations: None. CHEST: Lungs and pleural spaces: No abnormality noted. No mass. No consolidation. No significant effusion. No pneumothorax. Heart: Mild cardiomegaly. Mediastinum: No abnormality noted. Thyroid: No abnormality noted. ABDOMEN: Liver: Normal size and contour. Hypodense typical of steatosis. No mass or ductal dilation. Gallbladder and bile ducts: Suspect small layering gallstones or sludge. The common bile duct is normal caliber without calcified stone. Pancreas: No pancreatic mass, calcification, inflammation or ductal dilation noted. Spleen: No significant abnormality noted. Adrenals: No significant abnormality noted. Kidneys and ureters: There is mild right hydroureteronephrosis. No stone. There is bilateral perinephric and renal cortical scarring. No urinary gas. No perinephric fluid. Stomach and bowel: No distension or mucosal thickening. No inflammation noted. PELVIS: Appendix: Well seen and appears normal. Bladder: Appears normal for the degree of filling. No stones or inflammation. No large mass. Masses may not be detected in the absence of opacification. Reproductive: No significant abnormality noted. CHEST, ABDOMEN and PELVIS: Intraperitoneal space: No free air. No significant fluid collection. Retroperitoneal space: No abnormality noted. No fluid collection. Bones/joints: There is a 2.8 x 2.0 cm lytic lesion in the right iliac bone with thinning of the cortex. No pathologic fracture noted. Mild degenerative changes noted in the spine. Soft tissues: No significant abnormality noted. Vasculature: There is diffuse atherosclerosis of the aorta and branches. There is severe coronary calcification. No aneurysm. Lymph nodes: No enlarged lymph nodes. IMPRESSION: 1. Mild right hydroureteronephrosis without stone. Consider recently passed stone or pyelonephritis. There is bilateral renal scarring. 2. Lytic lesion right iliac bone consistent with multiple myeloma. No pathologic fracture. 3. No acute abnormality in the thorax. 4. Suspect small layering gallstones or sludge. ACT 112: Negative or not required by law. Electronically signed by Lory La 09-07-2024 3:[address] 09/07/24 14:23 EXAM: CT Chest Abdomen and Pelvis Without Intravenous Contrast INDICATION: Right flank pain. Dizziness. Multiple myeloma. TECHNIQUE: Axial computed tomography images of the chest, abdomen and pelvis without intravenous contrast. Sagittal and coronal reformatted images were created and reviewed. This CT exam was performed using one or more of the following dose reduction techniques: automated exposure control, adjustment of the mA and/or kV according to patient size, and/or use of iterative reconstruction technique. COMPARISON: No relevant prior studies available. FINDINGS: Limitations: None. CHEST: Lungs and pleural spaces: No abnormality noted. No mass. No consolidation. No significant effusion. No pneumothorax. Heart: Mild cardiomegaly. Mediastinum: No abnormality noted. Thyroid: No abnormality noted. ABDOMEN: Liver: Normal size and contour. Hypodense typical of steatosis. No mass or ductal dilation. Gallbladder and bile ducts: Suspect small layering gallstones or sludge. The common bile duct is normal caliber without calcified stone. Pancreas: No pancreatic mass, calcification, inflammation or ductal dilation noted. Spleen: No significant abnormality noted. Adrenals: No significant abnormality noted. Kidneys and ureters: There is mild right hydroureteronephrosis. No stone. There is bilateral perinephric and renal cortical scarring. No urinary gas. No perinephric fluid. Stomach and bowel: No distension or mucosal thickening. No inflammation noted. PELVIS: Appendix: Well seen and appears normal. Bladder: Appears normal for the degree of filling. No stones or inflammation. No large mass. Masses may not be detected in the absence of opacification. Reproductive: No significant abnormality noted. CHEST, ABDOMEN and PELVIS: Intraperitoneal space: No free air. No significant fluid collection. Retroperitoneal space: No abnormality noted. No fluid collection. Bones/joints: There is a 2.8 x 2.0 cm lytic lesion in the right iliac bone with thinning of the cortex. No pathologic fracture noted. Mild degenerative changes noted in the spine. Soft tissues: No significant abnormality noted. Vasculature: There is diffuse atherosclerosis of the aorta and branches. There is severe coronary calcification. No aneurysm. Lymph nodes: No enlarged lymph nodes. IMPRESSION: 1. Mild right hydroureteronephrosis without stone. Consider recently passed stone or pyelonephritis. There is bilateral renal scarring. 2. Lytic lesion right iliac bone consistent with multiple myeloma. No pathologic fracture. 3. No acute abnormality in the thorax. 4. Suspect small layering gallstones or sludge. ACT 112: Negative or not required by law. Electronically signed by Lory La 09-07-2024 3:25 PM Chest X-Ray 09/07/24 14:23 INDICATION: Shortness of breath. TECHNIQUE: Frontal radiograph of the chest. COMPARISON: None. FINDINGS: Low inspiratory depth. The cardiomediastinal silhouette and pulmonary vasculature appear within normal limits. Subsegmental atelectasis in the lung bases. No infiltrate, pleural effusion or pneumothorax. No acute osseous abnormality evident. IMPRESSION: No acute cardiopulmonary process. Electronically signed by Alex Ling 09-07-2024 2:[address] 09/07/24 14:23 EXAM: CT Head Without Intravenous Contrast INDICATION: Right flank pain and dizziness. TECHNIQUE: Axial computed tomography images of the head/brain without intravenous contrast. Sagittal and/or coronal reformats are provided. Sagittal and coronal reformatted images were created and reviewed. This CT exam was performed using one or more of the following dose reduction techniques: automated exposure control, adjustment of the mA and/or kV according to patient size, and/or use of iterative reconstruction technique. COMPARISON: No relevant prior studies available. FINDINGS: Limitations: None. Brain and extra-axial spaces: There is age appropriate cortical atrophy and chronic ischemic periventricular white matter hypodensity. No acute infarct, hemorrhage or mass noted. Bones/joints: Lytic lesion left temporal and frontal bones. No pathologic fracture noted. There are multiple small lytic lesions in the right calvarium. Soft tissues: No significant abnormality noted. Vasculature: No acute abnormality noted. Sinuses: There is an approximate 2 cm retention cyst or polyp in the left maxillary sinus. There is trace thickening right maxillary sinus. No sinus fluid. Mastoid air cells: No mastoid effusion. Orbits: No significant abnormality noted. IMPRESSION: 1. Cerebral atrophy. No acute changes. 2. Lytic myelomatous lesions noted in the skull particularly in the left frontal and parietal bones. ACT 112: Negative or not required by law. Electronically signed by Lory La 09-07-2024 3:28 PM Discharge Plan Visit Data Chief Complaint: Flank Pain Stated Complaint: PEEING BROWN, SHARP PAIN IN R SIDE KIDNEY ED Provider: Katt Mohan Discharge Problem: Thrombocytopenia, LAURI (acute kidney injury), Multiple myeloma, Hypercalcemia Patient Disposition: Admitted As Inpatient Discharge Instructions Interventions: ED Discharge Assessment Last Done: 09/07/24 17:51 Discharge Problem: Multiple myeloma Qualifiers: Multiple myeloma remission status: not in remission Qualified Code(s): C90.00 - Multiple myeloma not having achieved remission
[2024-09-07] MEDS: ZOLEDRONIC ACID 3 MG in SODIUM CHLORIDE 0.9% 100 ML IV ONE (19:41)
[2024-09-07] MEDS: LIDOCAINE 5% 1 PATCH TD ONE (19:42)
[2024-09-07] MEDS: ONDANSETRON INJ 2 MG/ML 2 ML VIAL IV PRN (19:46)
[2024-09-07] MEDS: HYDROmorphone INJ 1 MG/ML SYRINGE IV PRN (19:46)
[2024-09-07] MEDS: CEFEPIME 2000MG 2,000 MG/20 ML SYR IV SCH (19:48)
[2024-09-07] MEDS: LABETALOL HCL IV 5 MG/ML 20ML IV STA (19:55)
[2024-09-07 20:18] LABS: BUN Creatinine Ratio 15.5 (10-20); Calcium 11.4 mg/dl (8.6-10.3); Creatinine Clr Calc Pharmacy 33.6 ml/min
[2024-09-07] MEDS ORDERED: INSULIN ASPART PER UNIT CHARGE SC SCH (21:00)
--- NOTE | 2024-09-07 21:07 | Electrocardiogram Report ---
Test Reason : Blood Pressure : */* mmHG Vent. Rate : 94 BPM Atrial Rate : 94 BPM P-R Int : 142 ms QRS Dur : 98 ms QT Int : 350 ms P-R-T Axes : 54 34 67 degrees QTcB Int : 437 ms Normal sinus rhythm Nonspecific ST abnormality Abnormal ECG No previous ECGs available Confirmed by Mac Singh ([id number]) on 09/07/2024 9:07:16 PM Referred By: REFERRED SELF Confirmed By: Mac Singh
[2024-09-07] MEDS: dexAMETHasone 4 MG TAB PO SCH (21:48)
[2024-09-07] MEDS: MIRTAZAPINE TAB 15 MG TAB PO SCH (21:49)
[2024-09-07] MEDS: LORazepam 0.5 MG TAB PO SCH (21:49)
[2024-09-07] MEDS: INSULIN ASPART PER UNIT CHARGE SC SCH (21:49)
[2024-09-07] MEDS: LANTUS PER UNIT CHARGE SQ SCH (21:49)
[2024-09-08 01:38] LABS: BUN Creatinine Ratio 14.3 (10-20); Calcium 10.7 mg/dl (8.6-10.3); Creatinine Clr Calc Pharmacy 31.7 ml/min; Potassium 4.3 mmol/L (3.5-5.1)
[2024-09-08] MEDS: PLASMA-LYTE A 1,000 ML IV SCH (07:08)
[2024-09-08 07:09] LABS: Hemoglobin 8.1 g/dl (14.0-18.0); Mean Corpuscular Hemoglobin 31.2 pg (25.0-34.0); Mean Corpuscular Hgb Conc 33.8 g/dL (32.0-36.0); Mean Corpuscular Volume 92.3 fL (80.0-100.0); Mean Platelet Volume 11.9 fL (9.4-12.4); Platelet Count 18 K/uL (130-400); RDW Coefficient of Variation 14.7 % (11.5-14.5); RDW Standard Deviation 49.2 fL (36.4-46.3); White Blood Count 5.26 K/ul (4.8-10.8)
[2024-09-08] MEDS: CALCITONIN SALMON 400 UNITS/2 ML SQ STA (07:09)
[2024-09-08] MEDS: dexAMETHasone**PF** 10 MG/ML VIAL IV SCH (07:09)
[2024-09-08 07:21] LABS: Magnesium 1.3 mg/dl (1.7-2.4); Phosphorus 5.5 mg/dl (2.5-4.9)
[2024-09-08 07:29] LABS: BUN Creatinine Ratio 14.3 (10-20); Calcium 10.4 mg/dl (8.6-10.3); Creatinine Clr Calc Pharmacy 30.1 ml/min; Potassium 4.6 mmol/L (3.5-5.1)
[2024-09-08 07:30] LABS: Estimated Average Glucose 226 mg/dl; Hemoglobin A1C 9.5 % (4.5-5.6)
[2024-09-08 07:45] LABS: Basophils # (auto) 0.01 K/uL (0.00-0.20); Basophils % (auto) 0.2 %; Eosinophils # (auto) 0.04 K/uL (0.00-0.50); Eosinophils % (auto) 0.8 %; Immature Granulocytes % (auto) 1.9 %; Lymphocytes # (auto) 2.67 K/uL (1.20-3.40); Lymphocytes % (auto) 50.8 %; Monocytes # (auto) 0.32 K/uL (0.11-0.59); Monocytes % (auto) 6.1 %; Neutrophils # (auto) 2.12 K/uL (1.40-6.50); Neutrophils % (auto) 40.2 %; Rouleaux 2+
[2024-09-08] MEDS: MAGNESIUM SULFATE / D5W 1 GM/100 ML BAG IV SCH (08:15)
[2024-09-08] MEDS ORDERED: PHARMACY GLYCEMIC MGMT CONSULT PRN (08:16)
--- NOTE | 2024-09-08 08:58 | Urology Consultation ---
Date of Consultation September 08, 2024 Assessment & Plan (1) Hydronephrosis, right: (2) Right ureteral calculus: 68 yo/M presenting with right flank pain and dark urine admitted for management of thrombocytopenia, hypercalcemia and LAURI. Urology is consulted for right hydroureteronephrosis Patient afebrile, labs reviewedcreatinine 2.65, WBC 5.26, hemoglobin 8.1 Urinalysis on arrival was not suggestive of infection Blood cultures are pending Currently on Cefepime CT abdomen pelvis personally reviewed and demonstrates right hydroureteronephrosis secondary to 2 small right ureteral calculi within the mid right ureter Patient denies flank pain at present time I reviewed CT results with patientstones in the mid right ureter are small and he has decent probability of passing them spontaneously Discussed management options including surgical intervention with cystoscopy and right ureteral stent or trial of passage/observation Ureteral stent may cause significant hematuria given low platelet count (platelets 18 today) Creatinine is rising, baseline is unknown at this timerecommend obtain outside records No acute intervention planned today He prefers observation for now Recommend supportive care and medical management per primary team Recommend make NPO at midnight to reassess for intervention will follow, please contact our service with any questions/concerns or changes to clinical status including fever or intractable pain History of Present Illness Reason for Consultation: hydroureteronephrosis Requesting Physician: Dr. Morrison Attending Physician: Shira Pradhan MD History of Present Illness This is a 68-year-old male visiting from [place] with past medical history including diabetes, hypertension, hyperlipidemia, and multiple myeloma undergoing treatment who presented to the emergency department on 09/07/2024 for evaluation of flank pain and dark urine. On arrival to ED, he was afebrile and hemodynamically stable. Lab work showed WBC 5.52, hemoglobin 10.0, platelets 6, Na 135, creatinine 2.38 calcium 13.1. Workup in the emergency department included CT abdomen and pelvis without contrast. CT imaging personally reviewed and demonstrates mild right hydroureteronephrosis, bilateral perinephric stranding, and 2 small ureteral calculi seen within the mid right ureter. ED course: IV fluids, hydromorphone, calcitonin. He was admitted to the hospital medicine service for management of thrombocytopenia, hypercalcemia and LAURI. Urology is consulted for hydroureteronephrosis. Patient seen and examined at bedside this morning. He is resting in bed, arouses to his name. He is somnolent but answers yes/no questions. Does not p rovide much meaningful history. Denies prior history of kidney stones. He denies flank pain at present. He is unsure of his baseline creatinine. Denies nausea, vomiting, fever or chills. Cruz intact. Allergies Allergy/AdvReac Type Severity Reaction Status Date / Time Penicillins Allergy Rash Verified 09/07/24 15:48 Home Medications Medication Instructions Recorded Confirmed Type acyclovir 200 mg capsule 400 mg BID 09/07/24 09/07/24 History escitalopram oxalate 20 mg tablet 20 mg DAILY 09/07/24 09/07/24 History glipizide 5 mg tablet, extended 5 mg PO DAILY 09/07/24 09/07/24 History release 24 hr lisinopril 10 mg tablet 10 mg DAILY 09/07/24 09/07/24 History lorazepam 0.5 mg tablet 0.5 mg PM 09/07/24 09/07/24 History metformin 500 mg tablet 500 mg BID 09/07/24 09/07/24 History mirtazapine 15 mg tablet 15 mg PM 09/07/24 09/07/24 History omeprazole 40 mg capsule,delayed 40 mg QAM 09/07/24 09/07/24 History release Patient History Medical History Diabetes 1.5, managed as type 2 Depression GERD (gastroesophageal reflux disease) HLD (hyperlipidemia) Hypertension Social History Smoking Status: Never smoker Hx Alcohol Use: No Hx Substance Use: No Preferred Language: Upper Sorbian Communication Ability: Effective 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 Beliefs That Will Affect Care: None Current Living Situation: Family Other Information That Helps Us Care for You: No Feels Safe at Home: Yes Safety Concerns: Feels Safe At This Time Assistive Devices: Glasses Review of Systems Review of Systems: All systems reviewed & are unremarkable except as noted in HPI & below Physical Exam Constitutional: well developed and well nourished; no acute distress Respiratory: normal respiratory effort; no respiratory distress and no labored breathing Gastrointestinal (Abdomen): Inspection/Auscultation: abdomen normal to inspection Musculoskeletal: Head/Neck/Chest: normocephalic Neurologic: somnolent Psychiatric: Orientation: oriented x 3 and cooperative Genitourinary: Cruz patent and draining clear yellow urine Results & Data Vital Signs (Past 12 Hours) Vital Signs Temp Pulse Pulse Resp BP BP Pulse Ox 09/08/24 07:25 36.9 C 85 16 148/83 H 92 09/08/24 03:26 37.6 C H 96 H 22 169/84 H 93 09/08/24 00:00 86 09/07/24 23:17 37.0 C 87 18 173/81 H 95 09/07/24 22:00 37.0 C 86 22 169/83 H 95 09/07/24 21:30 09/07/24 21:27 37.2 C 84 22 165/80 H 95 09/07/24 21:00 37.2 C 86 22 158/79 H 94 O2 Del Method O2 Flow Rate 09/08/24 07:25 Room Air, Nasal Cannula 2 09/08/24 03:26 Room Air 09/08/24 00:00 09/07/24 23:17 Nasal Cannula 2.0 09/07/24 22:00 2 09/07/24 21:30 Nasal Cannula 2 09/07/24 21:27 2 09/07/24 21:00 2 PG Care Time/CCT Total # of Minutes Spent Total Time Spent with Patient: Total time spent is greater than 50% in coordination of care (as documented) at patient's floor/unit and/or counseling patient: Coding Level of Care Code 10459 INT INP/OBS CARE 2/55MIN Diagnoses Hydronephrosis, right N13.30 Right ureteral calculus N20.1
[2024-09-08] MEDS: FOLIC ACID 1 MG TAB PO SCH (09:04)
[2024-09-08] MEDS: CYANOCOBALAMIN (B-12) 500 MCG TABLET PO SCH (09:04)
[2024-09-08] MEDS: ESCITALOPRAM OXALATE 20 MG TAB PO SCH (09:04)
[2024-09-08] MEDS: LANTUS PER UNIT CHARGE SC ONE ×2 (09:11→17:26)
--- NOTE | 2024-09-08 09:15 | Pharmacy Report ---
Pharmacy Glycemic Short Note 2 - Date of Service September 08, 2024 - Glycemic Short BSG Results (Last 24 hours): 09/07/24 09/07/24 09/07/24 13:41 19:22 20:54 Glucose 241 H 223 H POC Glucose 264 H 09/08/24 09/08/24 09/08/24 00:40 05:44 07:27 Glucose 231 H 275 H POC Glucose 320 H* 09/08/24 07:30 Glucose POC Glucose 315 H* OUTPATIENT ANTIDIABETIC REGIMEN: * glipizide 5mg po daily * metformin 500mg po bid HbA1c 9.5% on 09/07/24 ASSESSMENT: * 68 year old male admitted 09/07 with LAURI and possible relapse of multiple myeloma. Pharmacy has been consulted while patient is admitted as he is a Type 2 diabetic and has been started on high dose steroids. * BSG at bedtime last night was 264mg/dL. He was ordered 5 units of Lantus and a weight based bolus insulin regimen with a stress of 2 was started. He only received a total of 9 units of insulin yesterday (5 were basal and 4 were bolus). * Fasting BSG today was 320mg/dL. Lantus 15 units x 1 was ordered and the bolus insulin parameters were tightened to a weight based stress of 3. * BSG continued to rise at lunch time today so the CF was tightened and a Lantus scale (0-20 units) was added for this evening. Overnight checks were also added on since the steroid is being given in the evening. PLAN FOR INPATIENT GLYCEMIC CONTROL: * Hold outpatient oral diabetes medications * Basal insulin * Lantus 15 units SQ x1 this morning and then lantus scale this evening (BSG < 120-hold; BSG 120-200, give 10 units; BSG > 200, give 20 units) * Bolus insulin * NovoLog per scale ACHS or Q6hrs while NPO * Goal Range: Low 110 mg/dL - High 150 mg/dL * Correction Factor: 15 mg/dL/unit * Nutritional / Prandial insulin per carb ratio of 1 unit per 6 grams CHO consumed
[2024-09-08] MEDS: LIDOCAINE 5% 1 PATCH TD SCH (10:39)
--- NOTE | 2024-09-08 11:32 | Hospitalist Progress Note ---
Date of Service September 08, 2024 Assessment & Plan (1) LAURI (acute kidney injury): (2) Abnormal CT scan: (3) Multiple myeloma: Plan Mr. Baeza is a 68 year old gentleman with past medical history remarkable for Multiple Myeloma undergoing active treatment s/p ASCT ~2023 (daratumumab, Velcade, dexamethasone), DMTII, HTN, HLD and GERD who presented to [facility] due to flank pain and is admitted for management of thrombocytopenia, hypercalcemia, and LAURI. Pt is from the [facility]. Right hydroureteronephrosis Possible pyelonephritis Flank pain Pt presented with flank pain, no leukocytosis or signs of sepsis at this time Noted pt currently undergoing chemotherapy UA w/o signs of infection at this time CT abd pelvis concerning for R hydro, possible stone per urology and pyelonephritis Blood Cx x 2 sets pending IV cefepime, pain meds prn, antiemetics prn Urology consult, appreciate further recs Acute on ?Chronic Kidney Injury Hypercalcemia Hypomagnesemia Hyperphosphatemia Ca levels elevated, PTH low at 4.9 Potentially related to relapse of MM given hypercalcemia and renal insufficiency s/p zolendronic acid and calcitonin per recs of Hematology trend ca q6 hours IVF @ 200cc/hr replete mag prn Continue to monitor Hematology consulted, appreciate recs Nephrology consulted, appreciate recs Multiple myeloma, concern for relapse Bicytopenia Folate Deficiency B12 Deficiency Anemia likely in setting of MM platelets 6K on admission, s/p 1U plt transfusion---> up to 18K Folate and B12 levels low started on Decadron 40mg IV for <M & thrombocytopenia acyclovir bid held in setting of renal insufficiency, resume as able AM peripheral smear pending Trend labs, transfuse platelets <10 and hgb < 7 Continue folate and b12 supplements Continue to monitor Hematology consulted as above Cholelithiasis Noted on CT abdomen pelvis, question of gallstones vs. layering sludge Direct bili elevated, otherwise LFTS normal at this time US gallbladder pending Continue to monitor LFTs Insomnia Pt usually takes ativan 0.5mg qhs scheduled Pt very drowsy on exam Will make prn in setting of narcotic use concurrently for pain as above Continue to monitor Diabetes Mellitus Type II Hgba1c of 9.5 Home Metformin 500mg BID and glipizide 5mg daily held Holding home meds Basal bolus insulin while on steroids started above Glycemic consult Continue to monitor HTN Holding home lisinopril 10mg Holding in setting of kidney dysfunction Labetolol prn for SBP > 175mmhg Depression Continue mirtazapine 15mg qhs continue escitalopram 20mg GERD priolsec 40mg Diet: DMII DVT ppx: Contraindicated SCDs iso thrombocytopenia and chemical ppx CI due to same Full code per admitting discussion with patient Dispo: PT/OT ordered for further recs, pt from [facility] Admission and Anticipated Discharge Date Admission Date: September 07, 2024 Subjective Patient was seen laying in bed Very drowsy however responds to external sternal rub Per nursing he was able to take his pills this morning after being awakened History limited this morning due to patient's drowsiness Son called and updated. Review of Systems Review of Systems: All systems reviewed & are unremarkable except as noted in Subjective Physical Exam Physical Exam: General: drowsy Psych: Appropriate mood and affect Neuro: drowsy HEENT: NC/AT CV: RRR Resp:no increased effort of breathing Abdomen: Soft, nontender Extremities: No edema in lower extremities bilaterally. Results & Data Results & Data Vital Signs (Past 12 Hours) Vital Signs Temp Pulse Pulse Resp BP Pulse Ox O2 Del Method 09/08/24 07:30 84 09/08/24 07:25 36.9 C 85 16 148/83 H 92 Room Air, Nasal Cannula 09/08/24 03:26 37.6 C H 96 H 22 169/84 H 93 Room Air 09/08/24 00:00 86 O2 Flow Rate 09/08/24 07:30 09/08/24 07:25 2 09/08/24 03:26 09/08/24 00:00 Diagnostic Findings Abdomen/Pelvis CT 09/07/24 14:22 EXAM: CT Chest Abdomen and Pelvis Without Intravenous Contrast INDICATION: Right flank pain. Dizziness. Multiple myeloma. TECHNIQUE: Axial computed tomography images of the chest, abdomen and pelvis without intravenous contrast. Sagittal and coronal reformatted images were created and reviewed. This CT exam was performed using one or more of the following dose reduction techniques: automated exposure control, adjustment of the mA and/or kV according to patient size, and/or use of iterative reconstruction technique. COMPARISON: No relevant prior studies available. FINDINGS: Limitations: None. CHEST: Lungs and pleural spaces: No abnormality noted. No mass. No consolidation. No significant effusion. No pneumothorax. Heart: Mild cardiomegaly. Mediastinum: No abnormality noted. Thyroid: No abnormality noted. ABDOMEN: Liver: Normal size and contour. Hypodense typical of steatosis. No mass or ductal dilation. Gallbladder and bile ducts: Suspect small layering gallstones or sludge. The common bile duct is normal caliber without calcified stone. Pancreas: No pancreatic mass, calcification, inflammation or ductal dilation noted. Spleen: No significant abnormality noted. Adrenals: No significant abnormality noted. Kidneys and ureters: There is mild right hydroureteronephrosis. No stone. There is bilateral perinephric and renal cortical scarring. No urinary gas. No perinephric fluid. Stomach and bowel: No distension or mucosal thickening. No inflammation noted. PELVIS: Appendix: Well seen and appears normal. Bladder: Appears normal for the degree of filling. No stones or inflammation. No large mass. Masses may not be detected in the absence of opacification. Reproductive: No significant abnormality noted. CHEST, ABDOMEN and PELVIS: Intraperitoneal space: No free air. No significant fluid collection. Retroperitoneal space: No abnormality noted. No fluid collection. Bones/joints: There is a 2.8 x 2.0 cm lytic lesion in the right iliac bone with thinning of the cortex. No pathologic fracture noted. Mild degenerative changes noted in the spine. Soft tissues: No significant abnormality noted. Vasculature: There is diffuse atherosclerosis of the aorta and branches. There is severe coronary calcification. No aneurysm. Lymph nodes: No enlarged lymph nodes. IMPRESSION: 1. Mild right hydroureteronephrosis without stone. Consider recently passed stone or pyelonephritis. There is bilateral renal scarring. 2. Lytic lesion right iliac bone consistent with multiple myeloma. No pathologic fracture. 3. No acute abnormality in the thorax. 4. Suspect small layering gallstones or sludge. ACT 112: Negative or not required by law. Electronically signed by Lory La 09-07-2024 3:[address] 09/07/24 14:23 EXAM: CT Chest Abdomen and Pelvis Without Intravenous Contrast INDICATION: Right flank pain. Dizziness. Multiple myeloma. TECHNIQUE: Axial computed tomography images of the chest, abdomen and pelvis without intravenous contrast. Sagittal and coronal reformatted images were created and reviewed. This CT exam was performed using one or more of the following dose reduction techniques: automated exposure control, adjustment of the mA and/or kV according to patient size, and/or use of iterative reconstruction technique. COMPARISON: No relevant prior studies available. FINDINGS: Limitations: None. CHEST: Lungs and pleural spaces: No abnormality noted. No mass. No consolidation. No significant effusion. No pneumothorax. Heart: Mild cardiomegaly. Mediastinum: No abnormality noted. Thyroid: No abnormality noted. ABDOMEN: Liver: Normal size and contour. Hypodense typical of steatosis. No mass or ductal dilation. Gallbladder and bile ducts: Suspect small layering gallstones or sludge. The common bile duct is normal caliber without calcified stone. Pancreas: No pancreatic mass, calcification, inflammation or ductal dilation noted. Spleen: No significant abnormality noted. Adrenals: No significant abnormality noted. Kidneys and ureters: There is mild right hydroureteronephrosis. No stone. There is bilateral perinephric and renal cortical scarring. No urinary gas. No perinephric fluid. Stomach and bowel: No distension or mucosal thickening. No inflammation noted. PELVIS: Appendix: Well seen and appears normal. Bladder: Appears normal for the degree of filling. No stones or inflammation. No large mass. Masses may not be detected in the absence of opacification. Reproductive: No significant abnormality noted. CHEST, ABDOMEN and PELVIS: Intraperitoneal space: No free air. No significant fluid collection. Retroperitoneal space: No abnormality noted. No fluid collection. Bones/joints: There is a 2.8 x 2.0 cm lytic lesion in the right iliac bone with thinning of the cortex. No pathologic fracture noted. Mild degenerative changes noted in the spine. Soft tissues: No significant abnormality noted. Vasculature: There is diffuse atherosclerosis of the aorta and branches. There is severe coronary calcification. No aneurysm. Lymph nodes: No enlarged lymph nodes. IMPRESSION: 1. Mild right hydroureteronephrosis without stone. Consider recently passed stone or pyelonephritis. There is bilateral renal scarring. 2. Lytic lesion right iliac bone consistent with multiple myeloma. No pathologic fracture. 3. No acute abnormality in the thorax. 4. Suspect small layering gallstones or sludge. ACT 112: Negative or not required by law. Electronically signed by Lory La 09-07-2024 3:25 PM Chest X-Ray 09/07/24 14:23 INDICATION: Shortness of breath. TECHNIQUE: Frontal radiograph of the chest. COMPARISON: None. FINDINGS: Low inspiratory depth. The cardiomediastinal silhouette and pulmonary vasculature appear within normal limits. Subsegmental atelectasis in the lung bases. No infiltrate, pleural effusion or pneumothorax. No acute osseous abnormality evident. IMPRESSION: No acute cardiopulmonary process. Electronically signed by Alex Ling 09-07-2024 2:[address] 09/07/24 14:23 EXAM: CT Head Without Intravenous Contrast INDICATION: Right flank pain and dizziness. TECHNIQUE: Axial computed tomography images of the head/brain without intravenous contrast. Sagittal and/or coronal reformats are provided. Sagittal and coronal reformatted images were created and reviewed. This CT exam was performed using one or more of the following dose reduction techniques: automated exposure control, adjustment of the mA and/or kV according to patient size, and/or use of iterative reconstruction technique. COMPARISON: No relevant prior studies available. FINDINGS: Limitations: None. Brain and extra-axial spaces: There is age appropriate cortical atrophy and chronic ischemic periventricular white matter hypodensity. No acute infarct, hemorrhage or mass noted. Bones/joints: Lytic lesion left temporal and frontal bones. No pathologic fracture noted. There are multiple small lytic lesions in the right calvarium. Soft tissues: No significant abnormality noted. Vasculature: No acute abnormality noted. Sinuses: There is an approximate 2 cm retention cyst or polyp in the left maxillary sinus. There is trace thickening right maxillary sinus. No sinus fluid. Mastoid air cells: No mastoid effusion. Orbits: No significant abnormality noted. IMPRESSION: 1. Cerebral atrophy. No acute changes. 2. Lytic myelomatous lesions noted in the skull particularly in the left frontal and parietal bones. ACT 112: Negative or not required by law. Electronically signed by Lory La 09-07-2024 3:28 PM
[2024-09-08] MEDS: INSULIN HUMAN REGULAR PER UNIT 9 UNITS in SYRINGE 8.91 ML IV ONE (17:26)
--- NOTE | 2024-09-08 17:36 | Ultrasound Report ---
INDICATION: Abdominal pain. COMPARISON: CT from the prior day. TECHNIQUE: Transverse and longitudinal pastrana scale and color Doppler images of the right upper quadrant were obtained. FINDINGS: Liver: The liver measures 16.5 cm cranial caudal dimension. Diffuse increased hepatic echotexture. No focal hepatic mass or intrahepatic biliary ductal dilatation. Hepatopedal flow in the portal vein. Gallbladder: Gallstones in the gallbladder. The gallbladder wall is at the upper limits of normal, 0.3 cm. Trace pericholecystic fluid noted. Negative sonographic Porter sign. The common bile duct measures up to 0.7 cm, within normal limits for patient's age. Pancreas: Free of focal mass, as visualized. Right kidney: Measures up to 11.9 cm. Simple appearing cyst measuring 1 cm. Negative for solid renal mass, hydronephrosis or shadowing calculus. IMPRESSION: 1. Findings concerning for acute cholecystitis. Follow-up with HIDA scan as clinically relevant. 2. Hepatic steatosis. 3. Simple right renal cyst. Electronically signed by Alex Ling 09-08-2024 5:36 PM
[2024-09-08] MEDS ORDERED: LANTUS PER UNIT CHARGE SC SCH (21:00)
[2024-09-08] MEDS: LORazepam 0.5 MG TAB PO PRN (22:00)
[2024-09-09] MEDS: INSULIN ASPART PER UNIT CHARGE SC SCH (00:12)
--- NOTE | 2024-09-09 07:50 | Urology Progress Note ---
Date of Service September 09, 2024 Assessment & Plan (1) Right ureteral calculus: (2) Hydronephrosis, right: Plan: Follow-up of right hydronephrosis, right ureteral calculi Patient remains afebrile, hemodynamically stable Labs reviewedcreatinine 2.51, no leukocytosis, hemoglobin 7.8, platelets [address] again with him as he is more alert todaydiscussed findings of small ureteral calculi on the right Discussed options for trial of passage/observation vs surgical intervention with cystoscopy and stent placement He is subjectively feeling better, no recurrent flank pain Creatinine is trending down today Given his low platelet count, will hold off on intervention with stent placement at this time He has a decent probability of passing stones spontaneously, but will require follow-up at home to ensure resolution of ureteral calculi Recommend medical expulsive therapy for now, symptom management Recommend strain urine Continue medical management and supportive care per primary team will follow peripherally, please contact our service with any issues or changes in patient status Admission and Anticipated Discharge Date Admission Date: September 07, 2024 Subjective Patient seen and examined at bedside this morning. More alert and interactive today. No flank pain. Denies nausea, vomiting, fever or chills. Cruz intact. Denies prior history of kidney stones. Review of Systems Constitutional: as per Subjective / HPI Genitourinary: + as per Subjective / HPI Physical Exam Constitutional: no acute distress Respiratory: no respiratory distress On supplemental oxygen Musculoskeletal: Head/Neck/Chest: normocephalic Neurologic: moves all extremities and awake Psychiatric: Orientation: alert and oriented x 3 Genitourinary: Cruz draining clear yellow urine Results & Data Vital Signs (Past 12 Hours) Vital Signs Temp Pulse Pulse Resp BP Pulse Ox O2 Del Method 09/09/24 07:17 73 09/09/24 03:23 36.9 C 88 18 150/66 H 98 Room Air 09/08/24 23:54 74 09/08/24 23:24 36.7 C 88 16 151/69 H 95 Room Air 09/08/24 20:00 Nasal Cannula 09/08/24 19:51 36.8 C 68 17 150/84 H 95 Room Air O2 Flow Rate 09/09/24 07:17 09/09/24 03:23 09/08/24 23:54 09/08/24 23:24 09/08/24 20:00 2 02/10/25 19:51 PG Care Time/CCT Total # of Minutes Spent Total Time Spent with Patient: Total time spent is greater than 50% in coordination of care (as documented) at patient's floor/unit and/or counseling patient: Coding Level of Care Code 88827 SUB INP/OBS CARE 08/23MIN Diagnoses Right ureteral calculus N20.1 Hydronephrosis, right N13.30
[2024-09-09 08:09] LABS: Hematocrit (blood only) 22.8 % (42.0-52.0); Hemoglobin 7.8 g/dl (14.0-18.0); Mean Corpuscular Hemoglobin 31.3 pg (25.0-34.0); Mean Corpuscular Hgb Conc 34.2 g/dL (32.0-36.0); Mean Corpuscular Volume 91.6 fL (80.0-100.0); Platelet Count 14 K/uL (130-400); RDW Coefficient of Variation 14.5 % (11.5-14.5); RDW Standard Deviation 48.7 fL (36.4-46.3); Red Blood Count 2.49 M/uL (4.70-6.10); White Blood Count 6.25 K/ul (4.8-10.8)
[2024-09-09 08:25] LABS: Albumin Globulin Ratio 0.7 (0.9-2); BUN Creatinine Ratio 21.5 (10-20); Bilirubin,Total 0.3 mg/dl (0.2-1.0); Calcium 9.9 mg/dl (8.6-10.3); Creatinine Clr Calc Pharmacy 31.8 ml/min; Globulin 4.2 gm/dl (2.5-4.0); Magnesium 1.9 mg/dl (1.7-2.4); Phosphorus 4.2 mg/dl (2.5-4.9); Potassium 4.2 mmol/L (3.5-5.1); Total Protein 7.2 gm/dl (6.0-8.3)
[2024-09-09 08:32] LABS: Immature Granulocytes # (auto) 0.11 K/uL (0.01-0.20); Immature Granulocytes % (auto) 1.8 %; Lymphocytes # (auto) 2.51 K/uL (1.20-3.40); Lymphocytes % (auto) 40.2 %; Monocytes # (auto) 0.42 K/uL (0.11-0.59); Monocytes % (auto) 6.7 %; Neutrophils # (auto) 3.21 K/uL (1.40-6.50); Neutrophils % (auto) 51.3 %; Ovalocytes 1+
[2024-09-09] MEDS: LANTUS PER UNIT CHARGE SC SCH ×2 (09:09→21:19)
--- NOTE | 2024-09-09 09:16 | Nephrology Consultation ---
Date of Consultation September 09, 2024 Assessment & Plan (1) LAURI (acute kidney injury): Nonoliguric Stage 1 LAURI, presumably. Presenting creatinine 2.4, peak value 2.7 yesterday, 2.5 today. Baseline creatinine unknown but looking at his med list he appears to be on doses of acyclovir and metformin modified for renal insufficiency, likely advanced CKD 3 though can't say for sure. He was using advil for several days prior to admission. w/ NSAIDS on board and nephritic sediment on presenting UA, differential includes acute interstitial nephritis and minimal change disease; no e/o nephrotic syndrome. no indication currently for discussion of renal replacement therapies. also on differential here is myeloma impacting kidneys which is common; may simply have ATN from the nsaids in setting of metformin and lisinopril use; and of course obstructive nephropathy on differential favor ATN v. AIN v. myeloma involvement +/- role of obstruction here. -repeat UA and quantify proteinuria >> orders in -hold acei, metformin still -continue daily bmp, strict I/O and nephrotoxin avoidance -educated pt on importance moving forward of nsaid avoidance; will need to include that in d/c summary >if this is AIN, would be covered by dexamethasone in any event; would not prolong course to address >>suggest he est w/ educational paraprofessional after d/c back to [place] area given multiple issues > stones, MM, NSAIDS, DM >> impacting kidneys Care coordinated w/ Dr Pradhan regarding differential dx for LAURI, planned labs, preliminary neph f/u dispo in person; we are in agreement. (2) Hydronephrosis, right: w/ stones obstructing > pending urology follow up as feasible given severe thrombocytopenia and plateau'd renal fucntion (3) Thrombocytopenia: plts 14K today > still severe w/ no e/o active bleeding. on dexamethasone po 3 day course (4) Multiple myeloma: per hematology, pt likely needs full restaging w/u for MM given severe thrombocytopenia other findings (5) Abdominal pain: f/u plan after RUQ ff History of Present Illness Reason for Consultation: renal insufficiency in setting of MM, R hydronephrosis, hypercalcemia Requesting Physician: Dr Pradhan Attending Physician: Shira Pradhan MD History of Present Illness 68-year-old male whom I am asked to evaluate for renal insufficiency in the setting multiple myeloma, right hydronephrosis, hypercalcemia was admitted afternoon of September 07 after presenting with 2 days of severe flank pain and gross hematuria/cola colored urine acute kidney injury, critical thrombocytopenia, hypercalcemia. His presenting platelets were 6000 (14K today); presenting calcium 13.1 (9.9 today); presenting creatinine 2.4. Past medical history includes active therapy for multiple myeloma, type 2 diabetes, hypertension, GERD, hyperlipidemia. He underwent an allogenic stem cell transplant in 2023 and is currently receiving care in [place] with weekly Midodrine with daratumumab, Velcade, dexamethasone. he takes lisinopril and metformin and acyclovir as OP. He had zoledronate 3 mg on 09/07 per hematology recommendations; had calcitonin one dose. He had 4L NS on 09/07 and no IVF since. he is on dexamethasone therapy and insulin. He's being covered w/ cefepime. He's had one unit of platelets. Renal function has remained essentially plateaued in the mid twos. He's making about 1.3L Urine daily so far. Admission imaging remarkable for mild R hydroureteronephrosis w/ 2 small R mid ureter calculi. Urology is following and watching for intervention if needed. yesterday afternoon he had RUQ u/s to evaluate ongoing abd pain w/ ff concerning for acute cholecystitis; HIDA recommended/planned. pt NPO currently. when I saw him he denied abd pain or N to me; no gross hematuria, no edema, no sob, no bleeding including no nosebleeds; no cough, rash, or F. 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 Hip pain has resolved. does not see nephrology as OP; aware he has some renal insufficiency but not of baseline creatinine. Allergies Allergy/AdvReac Type Severity Reaction Status Date / Time Penicillins Allergy Rash Verified 09/07/24 15:48 Home Medications Medication Instructions Recorded Confirmed Type acyclovir 200 mg capsule 400 mg BID 09/07/24 09/07/24 History escitalopram oxalate 20 mg tablet 20 mg DAILY 09/07/24 09/07/24 History glipizide 5 mg tablet, extended 5 mg PO DAILY 09/07/24 09/07/24 History release 24 hr lisinopril 10 mg tablet 10 mg DAILY 09/07/24 09/07/24 History lorazepam 0.5 mg tablet 0.5 mg PM 09/07/24 09/07/24 History metformin 500 mg tablet 500 mg BID 09/07/24 09/07/24 History mirtazapine 15 mg tablet 15 mg PM 09/07/24 09/07/24 History omeprazole 40 mg capsule,delayed 40 mg QAM 09/07/24 09/07/24 History release Patient History Medical History Diabetes 1.5, managed as type 2 Depression GERD (gastroesophageal reflux disease) HLD (hyperlipidemia) Hypertension Social History Smoking Status: Never smoker Hx Alcohol Use: No Hx Substance Use: No Preferred Language: Kyrgyz Communication Ability: Effective 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 Required: No Beliefs That Will Affect Care: None Current Living Situation: Family Other Information That Helps Us Care for You: No Feels Safe at Home: Yes Safety Concerns: Feels Safe At This Time Assistive Devices: None Review of Systems 2 Review of Systems: All systems reviewed & are unremarkable except as noted in HPI & below Physical Exam 2 Constitutional: well developed and well nourished maneuvers easily for exam Eyes: EOM intact bilaterally ENMT: Ears: no external ear abnormality Nose: no external nose abnormality Mouth: + oropharynx abnormality (voice hoarse/sinus- y) and + dry oral mucous membranes Neck: no nuchal rigidity Respiratory: normal respiratory effort Auscultation: + diminished lung sounds Cardiovascular: RRR, no murmur, no edema Gastrointestinal (Abdomen): Inspection/Auscultation: normal bowel sounds P ercussion/Palpation: abdomen soft; abdomen nontender Musculoskeletal: Extremities: strength 5/5 throughout Skin: no rashes, warm and dry Neurologic: corona, fluent speech, no tremor Psychiatric: A+Ox3, euthymic affect Results & Data Vital Signs (Past 12 Hours) Vital Signs Temp Pulse Pulse Resp BP Pulse Ox O2 Del Method 09/09/24 07:43 36.8 C 73 19 142/73 H 96 Nasal Cannula 09/09/24 07:17 73 09/09/24 03:23 36.9 C 88 18 150/66 H 98 Room Air 09/08/24 23:54 74 09/08/24 23:24 36.7 C 88 16 151/69 H 95 Room Air O2 Flow Rate 09/09/24 07:43 2.0 09/09/24 07:17 09/09/24 03:23 09/08/24 23:54 09/08/24 23:24 Laboratory Results 09/09/24 07:35 09/09/24 07:35 UA cloudy w/ ketones, glucose, blood, protein; no bacteria or white cells. albumin 3.8 on presentation > [address] CAP, CXR > images personally reviewed agree w/ reports
--- NOTE | 2024-09-09 10:23 | Pharmacy Report ---
Pharmacy Glycemic Short Note 2 - Date of Service September 09, 2024 - Glycemic Short BSG Results (Last 24 hours): 09/08/24 09/08/24 09/08/24 11:15 11:18 16:24 Glucose POC Glucose 368 H* 380 H* 319 H* 09/08/24 09/08/24 09/08/24 16:26 18:14 20:16 Glucose POC Glucose 310 H* 285 H 288 H 09/09/24 09/09/24 09/09/24 00:01 04:06 07:35 Glucose 195 H POC Glucose 255 H 222 H 09/09/24 07:40 Glucose POC Glucose 215 H OUTPATIENT ANTIDIABETIC REGIMEN: * glipizide 5mg po daily * metformin 500mg po bid HbA1c 9.5% on 09/07/24 ASSESSMENT: 09/09: * Steven received 82 units of insulin yesterday, 35 of which were basal. BSGs were: [phone] mg/dL. * Fasting BSG this AM was 215 mg/dL. Patient is NPO this morning for a possible intervention. Of note, patient received 35 units of basal yesterday and had no documented PO intake. Therefore, I am comfortable with increasing basal dose today despite patient being NPO. Suspect diet may be ordered this aftern oon but will need to follow to see if patient tolerates. Will give 30 units of basal this AM and likely add a scaled PM basal dose for hyperglycemia. * Correctional insulin was not enough yesterday. Will tighten Novolog parameters again this morning. Tightened upper end of goal range to 140 today. 09/08: * 68 year old male admitted 09/07 with LAURI and possible relapse of multiple myeloma. Pharmacy has been consulted while patient is admitted as he is a Type 2 diabetic and has been started on high dose steroids. * BSG at bedtime last night was 264mg/dL. He was ordered 5 units of Lantus and a weight based bolus insulin regimen with a stress of 2 was started. He only received a total of 9 units of insulin yesterday (5 were basal and 4 were bolus). * Fasting BSG today was 320mg/dL. Lantus 15 units x 1 was ordered and the bolus insulin parameters were tightened to a weight based stress of 3. * BSG continued to rise at lunch time today so the CF was tightened and a Lantus scale (0-20 units) was added for this evening. Overnight checks were also added on since the steroid is being given in the evening. PLAN FOR INPATIENT GLYCEMIC CONTROL: * Hold outpatient oral diabetes medications * Basal insulin * Lantus 30 units SC AM * Lantus 0-20 units SC PM (see eMAR for more details) * Bolus insulin * NovoLog per scale ACHS or Q6hrs while NPO * Goal Range: Low 110 mg/dL - High 140 mg/dL * Correction Factor: 12 mg/dL/unit * Nutritional / Prandial insulin per carb ratio of 1 unit per 4 grams CHO consumed
--- NOTE | 2024-09-09 12:01 | Hospitalist Progress Note ---
Date of Service September 09, 2024 Assessment & Plan (1) LAURI (acute kidney injury): (2) Abnormal CT scan: (3) Multiple myeloma: Plan Mr. Baeza is a 68 year old gentleman with past medical history remarkable for Multiple Myeloma undergoing active treatment s/p ASCT ~2023 (daratumumab, Velcade, dexamethasone), DMTII, HTN, HLD and GERD who presented to [facility] ED due to flank pain and is admitted for management of thrombocytopenia, hypercalcemia, and LAURI. Pt is from the [place] area, follows medically with Jose. Right hydroureteronephrosis Possible pyelonephritis Flank pain Pt presented with flank pain, no leukocytosis or signs of sepsis at this time Noted pt currently undergoing chemotherapy UA w/o signs of infection at this time CT abd pelvis concerning for R hydro, possible stone per urology and pyelonephritis Blood Cx x 2 sets NGTD IV cefepime, pain meds prn, antiemetics prn Urology consult, appreciate further recs Hypercalcemia Acute on ?Chronic Kidney Injury Hypomagnesemia Hyperphosphatemia Ca levels elevated, PTH low at 4.9 Potentially related to relapse of MM given hypercalcemia and renal insufficiency s/p zolendronic acid and calcitonin per recs of Hematology trend ca IVF @ 200cc/hr replete mag prn Continue to monitor Hematology consulted, appreciate recs Nephrology consulted, appreciate recs Multiple myeloma, concern for relapse Bicytopenia Folate Deficiency B12 Deficiency Anemia likely in setting of MM platelets 6K on admission, s/p 1U plt transfusion---> up to 18K Folate and B12 levels low started on Decadron 40mg IV for <M & thrombocytopenia acyclovir bid held in setting of renal insufficiency, resume as able Peripheral smear noting the following: "...The peripheral blood smear shows normochromic, normocytic appearing erythrocytes without significant anisopoikilocytosis. No significant numbers of rouleaux are evident. Polychromatophilic cells (a subset of reticulocytes) are noted. I do not see significant numbers of schistocytes or spherocytes indicative of a hemolytic process. Leukocytes appear normal in number, relative distribution and morphology. Plasma cells are not seen. Platelets are decreased in number and are unremarkable in appearance. I do not see any significant number of platelet clumps resulting in an artifactual thrombocytopenia.The associated CBC shows a HGB of 7.8 with normal MCV and MCHC and low platelets (14,000). Calcium was high on admission.Plasma cells are not identified but these are only rarely seen in multiple myeloma in the peripheral blood. No overt changes of a myelodysplastic syndrome or hemolytic anemia, are seen..." Trend labs, transfuse platelets <10 and hgb < 7 Continue folate and b12 supplements Continue to monitor Hematology consulted as above Possible Acute cholecystitis Cholelithiasis Noted on CT abdomen pelvis, question of gallstones vs. layering sludge Direct bili elevated, otherwise LFTs normal at this time US gallbladder concerning for acute cholecystitis. Follow-up HIDA scan ordered and pending General Surgery consulted, appreciate recs Continue to monitor Insomnia Pt usually takes ativan 0.5mg qhs scheduled Pt very drowsy on exam Will make prn in setting of narcotic use concurrently for pain as above Continue to monitor Diabetes Mellitus Type II Hgba1c of 9.5 Home Metformin 500mg BID and glipizide 5mg daily held Holding home meds Basal bolus insulin while on steroids started above Glycemic consult Continue to monitor HTN Holding home lisinopril 10mg Holding in setting of kidney dysfunction Labetolol prn for SBP > 175mmhg Depression Continue mirtazapine 15mg qhs continue escitalopram 20mg GERD Prilosec 40mg Diet: DMII DVT ppx: Contraindicated SCDs iso thrombocytopenia and chemical ppx CI due to same Full code per admitting discussion with patient Dispo: PT/OT ordered for further recs, pt from [facility] Admission and Anticipated Discharge Date Admission Date: September 07, 2024 Subjective pt was seen laying in bed, more alert today. AAOx 3 Denied pain at that time Denied fevers, chills or night sweats No abd pain, gallbladder US noting possible acute cholecystitis Review of Systems Review of Systems: All systems reviewed & are unremarkable except as noted in Subjective Physical Exam Physical Exam: General: AAOx3 Psych: Appropriate mood and affect Neuro: AAOx3 HEENT: NC/AT CV: RRR Resp:no increased effort of breathing Abdomen: Soft, nontender Extremities: No edema in lower extremities bilaterally. Results & Data Results & Data Vital Signs (Past 12 Hours) Vital Signs Temp Pulse Pulse Resp BP Pulse Ox O2 Del Method 09/09/24 11:10 36.9 C 77 19 149/82 H 98 Nasal Cannula 09/09/24 07:43 36.8 C 73 19 142/73 H 96 Nasal Cannula 09/09/24 07:30 Nasal Cannula 09/09/24 07:17 73 09/09/24 03:23 36.9 C 88 18 150/66 H 98 Room Air O2 Flow Rate 09/09/24 11:10 2.0 09/09/24 07:43 2.0 09/09/24 07:30 2 09/09/24 07:17 09/09/24 03:23 Diagnostic Findings Abdomen/Pelvis CT 09/07/24 14:22 EXAM: CT Chest Abdomen and Pelvis Without Intravenous Contrast INDICATION: Right flank pain. Dizziness. Multiple myeloma. TECHNIQUE: Axial computed tomography images of the chest, abdomen and pelvis without intravenous contrast. Sagittal and coronal reformatted images were created and reviewed. This CT exam was performed using one or more of the following dose reduction techniques: automated exposure control, adjustment of the mA and/or kV according to patient size, and/or use of iterative reconstruction technique. COMPARISON: No relevant prior studies available. FINDINGS: Limitations: None. CHEST: Lungs and pleural spaces: No abnormality noted. No mass. No consolidation. No significant effusion. No pneumothorax. Heart: Mild cardiomegaly. Mediastinum: No abnormality noted. Thyroid: No abnormality noted. ABDOMEN: Liver: Normal size and contour. Hypodense typical of steatosis. No mass or ductal dilation. Gallbladder and bile ducts: Suspect small layering gallstones or sludge. The common bile duct is normal caliber without calcified stone. Pancreas: No pancreatic mass, calcification, inflammation or ductal dilation noted. Spleen: No significant abnormality noted. Adrenals: No significant abnormality noted. Kidneys and ureters: There is mild right hydroureteronephrosis. No stone. There is bilateral perinephric and renal cortical scarring. No urinary gas. No perinephric fluid. Stomach and bowel: No distension or mucosal thickening. No inflammation noted. PELVIS: Appendix: Well seen and appears normal. Bladder: Appears normal for the degree of filling. No stones or inflammation. No large mass. Masses may not be detected in the absence of opacification. Reproductive: No significant abnormality noted. CHEST, ABDOMEN and PELVIS: Intraperitoneal space: No free air. No significant fluid collection. Retroperitoneal space: No abnormality noted. No fluid collection. Bones/joints: There is a 2.8 x 2.0 cm lytic lesion in the right iliac bone with thinning of the cortex. No pathologic fracture noted. Mild degenerative changes noted in the spine. Soft tissues: No significant abnormality noted. Vasculature: There is diffuse atherosclerosis of the aorta and branches. There is severe coronary calcification. No aneurysm. Lymph nodes: No enlarged lymph nodes. IMPRESSION: 1. Mild right hydroureteronephrosis without stone. Consider recently passed stone or pyelonephritis. There is bilateral renal scarring. 2. Lytic lesion right iliac bone consistent with multiple myeloma. No pathologic fracture. 3. No acute abnormality in the thorax. 4. Suspect small layering gallstones or sludge. ACT 112: Negative or not required by law. Electronically signed by Lory La 09-07-2024 3:[address] 09/07/24 14:23 EXAM: CT Chest Abdomen and Pelvis Without Intravenous Contrast INDICATION: Right flank pain. Dizziness. Multiple myeloma. TECHNIQUE: Axial computed tomography images of the chest, abdomen and pelvis without intravenous contrast. Sagittal and coronal reformatted images were created and reviewed. This CT exam was performed using one or more of the following dose reduction techniques: automated exposure control, adjustment of the mA and/or kV according to patient size, and/or use of iterative reconstruction technique. COMPARISON: No relevant prior studies available. FINDINGS: Limitations: None. CHEST: Lungs and pleural spaces: No abnormality noted. No mass. No consolidation. No significant effusion. No pneumothorax. Heart: Mild cardiomegaly. Mediastinum: No abnormality noted. Thyroid: No abnormality noted. ABDOMEN: Liver: Normal size and contour. Hypodense typical of steatosis. No mass or ductal dilation. Gallbladder and bile ducts: Suspect small layering gallstones or sludge. The common bile duct is normal caliber without calcified stone. Pancreas: No pancreatic mass, calcification, inflammation or ductal dilation noted. Spleen: No significant abnormality noted. Adrenals: No significant abnormality noted. Kidneys and ureters: There is mild right hydroureteronephrosis. No stone. There is bilateral perinephric and renal cortical scarring. No urinary gas. No perinephric fluid. Stomach and bowel: No distension or mucosal thickening. No inflammation noted. PELVIS: Appendix: Well seen and appears normal. Bladder: Appears normal for the degree of filling. No stones or inflammation. No large mass. Masses may not be detected in the absence of opacification. Reproductive: No significant abnormality noted. CHEST, ABDOMEN and PELVIS: Intraperitoneal space: No free air. No significant fluid collection. Retroperitoneal space: No abnormality noted. No fluid collection. Bones/joints: There is a 2.8 x 2.0 cm lytic lesion in the right iliac bone with thinning of the cortex. No pathologic fracture noted. Mild degenerative changes noted in the spine. Soft tissues: No significant abnormality noted. Vasculature: There is diffuse atherosclerosis of the aorta and branches. There is severe coronary calcification. No aneurysm. Lymph nodes: No enlarged lymph nodes. IMPRESSION: 1. Mild right hydroureteronephrosis without stone. Consider recently passed stone or pyelonephritis. There is bilateral renal scarring. 2. Lytic lesion right iliac bone consistent with multiple myeloma. No pathologic fracture. 3. No acute abnormality in the thorax. 4. Suspect small layering gallstones or sludge. ACT 112: Negative or not required by law. Electronically signed by Lory La 09-07-2024 3:25 PM Chest X-Ray 09/07/24 14:23 INDICATION: Shortness of breath. TECHNIQUE: Frontal radiograph of the chest. COMPARISON: None. FINDINGS: Low inspiratory depth. The cardiomediastinal silhouette and pulmonary vasculature appear within normal limits. Subsegmental atelectasis in the lung bases. No infiltrate, pleural effusion or pneumothorax. No acute osseous abnormality evident. IMPRESSION: No acute cardiopulmonary process. Electronically signed by Alex Ling 09-07-2024 2:[address] 09/07/24 14:23 EXAM: CT Head Without Intravenous Contrast INDICATION: Right flank pain and dizziness. TECHNIQUE: Axial computed tomography images of the head/brain without intravenous contrast. Sagittal and/or coronal reformats are provided. Sagittal and coronal reformatted images were created and reviewed. This CT exam was performed using one or more of the following dose reduction techniques: automated exposure control, adjustment of the mA and/or kV according to patient size, and/or use of iterative reconstruction technique. COMPARISON: No relevant prior studies available. FINDINGS: Limitations: None. Brain and extra-axial spaces: There is age appropriate cortical atrophy and chronic ischemic periventricular white matter hypodensity. No acute infarct, hemorrhage or mass noted. Bones/joints: Lytic lesion left temporal and frontal bones. No pathologic fracture noted. There are multiple small lytic lesions in the right calvarium. Soft tissues: No significant abnormality noted. Vasculature: No acute abnormality noted. Sinuses: There is an approximate 2 cm retention cyst or polyp in the left maxillary sinus. There is trace thickening right maxillary sinus. No sinus fluid. Mastoid air cells: No mastoid effusion. Orbits: No significant abnormality noted. IMPRESSION: 1. Cerebral atrophy. No acute changes. 2. Lytic myelomatous lesions noted in the skull particularly in the left frontal and parietal bones. ACT 112: Negative or not required by law. Electronically signed by Lory La 09-07-2024 3:28 PM Gallbladder Ultrasound 09/08/24 15:05 INDICATION: Abdominal pain. COMPARISON: CT from the prior day. TECHNIQUE: Transverse and longitudinal pastrana scale and color Doppler images of the right upper quadrant were obtained. FINDINGS: Liver: The liver measures 16.5 cm cranial caudal dimension. Diffuse increased hepatic echotexture. No focal hepatic mass or intrahepatic biliary ductal dilatation. Hepatopedal flow in the portal vein. Gallbladder: Gallstones in the gallbladder. The gallbladder wall is at the upper limits of normal, 0.3 cm. Trace pericholecystic fluid noted. Negative sonographic Porter sign. The common bile duct measures up to 0.7 cm, within normal limits for patient's age. Pancreas: Free of focal mass, as visualized. Right kidney: Measures up to 11.9 cm. Simple appearing cyst measuring 1 cm. Negative for solid renal mass, hydronephrosis or shadowing calculus. IMPRESSION: 1. Findings concerning for acute cholecystitis. Follow-up with HIDA scan as clinically relevant. 2. Hepatic steatosis. 3. Simple right renal cyst. Electronically signed by Alex Ling 09-08-2024 5:36 PM
--- NOTE | 2024-09-09 14:13 | Nuclear Medicine Report ---
NM hepatobiliary EF CLINICAL HISTORY: 68 years-old Male with f/u on US gallbladder, concern for acute cholecysi. TECHNIQUE: Following the intravenous administration of 5.9 mCi of technetium-99m Choletec, sequentia l abdominal images were obtained. In order to evaluate the contractile response of the gallbladder, 1.9 mcg of Kinevac was administered by slow intravenous infusion over 30 min starting approximately 6 0 min after the administration of the radiopharmaceutical. Sequential imaging was continued for 45 m in after the start of the Kinevac infusion. COMPARISON: CT 09/07/2024 FINDINGS: There is prompt, uniform accumulation of the tracer by the liver. There is normal filling of the int rahepatic ducts, common bile duct and gallbladder and normal excretion of the tracer into the duodenu m. There is normal contraction of the gallbladder. The calculated gallbladder ejection fraction is 86% (normal >40%). There is moderate enterogastric reflux. IMPRESSION: 1. Normal contractile response of the gallbladder to Kinevac infusion. 2. Moderate enterogastric reflux. ACT 112: Negative or not required by law. The above report was generated using voice recognition software. It may contain grammatical, syntax o r spelling errors. Electronically signed by: Lalo Palomino M.D. 09/09/2024 2:12 PM
[2024-09-09] MEDS: SINCALIDE 1.8 MCG in SODIUM CHLORIDE 0.9% 100 ML IV ONE (15:58)
--- NOTE | 2024-09-09 16:49 | Surgery Consultation ---
Date of Consultation September 09, 2024 Assessment & Plan (1) Gallstones: His CT, ultrasound and HIDA scan images and results were personally viewed and interpreted by myself On CT scan there is no signs of any pericholecystic inflammation, he has gallstones on ultrasound and HIDA scan showed normal filling of the gallbladder No plans for cholecystectomy he would be very high risk for elective cholecystectomy he has multiple myeloma and thrombocytopenia Surgery will sign off at this time, please call with any questions or concerns History of Present Illness Reason for Consultation: Possible cholecystitis Attending Physician: Shira Pradhan MD History of Present Illness This is a 68-year-old male who was admitted to the hospital 2 days ago with what look like ureteral stones and possible pyelonephritis as well as acute kidney injury, thrombocytopenia, CVA. He did have some sharp flank pain when he initially came in with 1 episode emesis as well. No aggravating or relieving factors to the pain. No radiation of the pain. He has not had any since that time. He did undergo a gallbladder ultrasound that showed also possible cholecystitis. He denies any constipation or diarrhea. he is actively undergoing treatment for his multiple myeloma. Denies any previous abdominal surgeries. Allergies Allergy/AdvReac Type Severity Reaction Status Date / Time Penicillins Allergy Rash Verified 09/07/24 15:48 Home Medications Medication Instructions Recorded Confirmed Type acyclovir 200 mg capsule 400 mg BID 09/07/24 09/07/24 History escitalopram oxalate 20 mg tablet 20 mg DAILY 09/07/24 09/07/24 History glipizide 5 mg tablet, extended 5 mg PO DAILY 09/07/24 09/07/24 History release 24 hr lisinopril 10 mg tablet 10 mg DAILY 09/07/24 09/07/24 History lorazepam 0.5 mg tablet 0.5 mg PM 09/07/24 09/07/24 History metformin 500 mg tablet 500 mg BID 09/07/24 09/07/24 History mirtazapine 15 mg tablet 15 mg PM 09/07/24 09/07/24 History omeprazole 40 mg capsule,delayed 40 mg QAM 09/07/24 09/07/24 History release Patient History Medical History Diabetes 1.5, managed as type 2 Depression GERD (gastroesophageal reflux disease) HLD (hyperlipidemia) Hypertension Social History Smoking Status: Never smoker Hx Alcohol Use: No Hx Substance Use: No Preferred Language: Spanish Communication Ability: Effective Kick Boxer Required: No Beliefs That Will Affect Care: None Current Living Situation: Family Other Information That Helps Us Care for You: No Feels Safe at Home: Yes Safety Concerns: Feels Safe At This Time Assistive Devices: None Review of Systems Constitutional: no fever and no chills Eyes: no blind spots and no corrective lenses Ear, Nose, Mouth, Throat: no ear pain and no ear discharge Respiratory: no cough and no dyspnea Cardiovascular: no chest pain and no dyspnea on exertion Gastrointestinal: + abdominal pain, + nausea and + vomitin g; no constipation and no diarrhea/loose stools Genitourinary: no dysuria or no urinary incontinence Musculoskeletal: no back pain and no neck pain Integumentary: no lesions, no skin ulcer and no erythema Neurologic: no gait abnormality and no headache(s) Psychiatric: no behavioral changes and no depression Hematologic / Lymphatic: no easy bleeding and no easy bruising Physical Exam Constitutional: WD/WN, vitals as above Eyes: PERRL, conjunctivae normal, anicteric sclerae ENMT: external ear and nose normal, oropharynx normal Neck: trachea midline, no thyromegaly Respiratory: normal respiratory effort, lungs clear to auscultation Cardiovascular: RRR, no murmur, no edema Gastrointestinal (Abdomen): normal bowel sounds, soft, nontender, no hepatosplenomegaly Musculoskeletal: no cyanosis or clubbing, extremities motor strength 5/5 Skin: no rashes, warm and dry Neurologic: PERRL, EOMI, accommodation nl, no face palsy, no dysarthria Psychiatric: A+Ox3, euthymic affect Results & Data Vital Signs (Past 12 Hours) Vital Signs Temp Pulse Pulse Resp BP BP Pulse Ox 09/09/24 15:26 36.6 C 72 19 135/74 97 09/09/24 14:13 36.4 C L 78 16 147/84 H 98 09/09/24 11:10 36.9 C 77 19 149/82 H 98 09/09/24 07:43 36.8 C 73 19 142/73 H 96 09/09/24 07:30 09/09/24 07:17 73 O2 Del Method O2 Flow Rate 09/09/24 15:26 Nasal Cannula 2.0 09/09/24 14:13 Nasal Cannula 3 09/09/24 11:10 Nasal Cannula 2.0 09/09/24 07:43 Nasal Cannula 2.0 09/09/24 07:30 Nasal Cannula 2 09/09/24 07:17 PG Care Time/CCT Total # of Minutes Spent Total Time Spent with Patient: Total time spent is greater than 50% in coordination of care (as documented) at patient's floor/unit and/or counseling patient: Coding Level of Care Code 37671 INT INP/OBS CARE 375MIN Diagnoses Gallstones K80.20
[2024-09-09 17:42] LABS: Appearance Urine Turbid (Clear); Bacteria Urine Automated None Seen (None Seen); Bilirubin Urine Negative (Negative); Blood Urine 3+ (Negative); Color Urine Orange; Epithelial Cell Urine Auto 0-2 /hpf (0-2); Glucose Urine UA Trace (Negative); Granular Casts Urine Present /lpf (None Prsent); Ketones Urine Negative (Negative); Leukocyte Esterase Urine Trace (Negative); Nitrite Urine Negative (Negative); Protein Urine 1+ (Negative); RBC Urine Automated >20 /hpf (0-2); Specific Gravity Urine 1.018 (1.000-1.030); Uric Acid Crystals Urine Present (None Prsent); Urobilinogen Urine Negative (Negative); WBC Urine Automated 0-5 /hpf (0-5)
[2024-09-09 17:44] LABS: Creatinine Urine Random 83.5 mg/dl; Protein Creatinine Ratio Urine 1.1 (0-0.2); Total Protein Urine Random 88.2 mg/dl (0-11.9)
[2024-09-10] MEDS: LORazepam 0.5 MG TAB PO STA (00:16)
[2024-09-10] MEDS: LORazepam 2 MG/1 ML VIAL IV STA (03:24)
[2024-09-10 06:29] LABS: Hematocrit (blood only) 22.2 % (42.0-52.0); Hemoglobin 7.7 g/dl (14.0-18.0); Mean Corpuscular Hemoglobin 31.6 pg (25.0-34.0); Mean Corpuscular Hgb Conc 34.7 g/dL (32.0-36.0); Platelet Count 13 K/uL (130-400); RDW Coefficient of Variation 14.6 % (11.5-14.5); RDW Standard Deviation 48.6 fL (36.4-46.3); Red Blood Count 2.44 M/uL (4.70-6.10); White Blood Count 5.21 K/ul (4.8-10.8)
[2024-09-10 06:59] LABS: Albumin Globulin Ratio 0.7 (0.9-2); Albumin Level 2.9 gm/dl (3.4-5.0); BUN Creatinine Ratio 28.7 (10-20); Bilirubin,Total 0.4 mg/dl (0.2-1.0); Calcium 8.6 mg/dl (8.6-10.3); Creatinine Clr Calc Pharmacy 37.9 ml/min; Globulin 4.1 gm/dl (2.5-4.0); Magnesium 1.7 mg/dl (1.7-2.4)
[2024-09-10 07:07] LABS: Immature Granulocytes # (auto) 0.11 K/uL (0.01-0.20); Immature Granulocytes % (auto) 2.1 %; Lymphocytes # (auto) 1.84 K/uL (1.20-3.40); Lymphocytes % (auto) 35.3 %; Monocytes # (auto) 0.28 K/uL (0.11-0.59); Monocytes % (auto) 5.4 %; Neutrophils # (auto) 2.98 K/uL (1.40-6.50); Neutrophils % (auto) 57.2 %; RBC Morphology Unremarkable
--- NOTE | 2024-09-10 10:35 | Urology Progress Note ---
Date of Service September 10, 2024 Assessment & Plan (1) Right ureteral calculus: (2) Hydronephrosis, right: Plan: Follow-up of right hydronephrosis, right ureteral calculi Patient remains afebrile, vitals stable Labs reviewedcreatinine improved to 2.09, no leukocytosis, hemoglobin 7.7, platelets 13 No recurrent flank pain Creatinine is trending down Given significant thrombocytopenia, will hold off on intervention with stent placement at this time He has a decent probability of passing ureteral stones spontaneously given small size Recommend medical expulsive therapy for now, symptom management Recommend strain urine Continue medical management and supportive care per primary team Recommend appropriate follow-up when he returns home to ensure resolution of ureteral calculi will sign off, please contact our service with any issues or changes in patient status Admission and Anticipated Discharge Date Admission Date: September 07, 2024 Subjective Patient seen and examined at bedside this morning. He is awake and resting in bed. Denies flank pain. Reports he is having difficulty sleeping due to steroids. Reports occasional nausea. No vomiting. No fever or chills. Cruz intact. Review of Systems Constitutional: as per Subjective / HPI Genitourinary: + as per Subjective / HPI Physical Exam Constitutional: no acute distress Respiratory: no respiratory distress On supplemental oxygen Musculoskeletal: Head/Neck/Chest: normocephalic Neurologic: moves all extremities and awake Psychiatric: Orientation: alert and oriented x 3 Genitourinary: Cruz draining clear yellow urine Results & Data Vital Signs (Past 12 Hours) Vital Signs Temp Pulse Pulse Resp BP BP Pulse Ox 09/10/24 10:26 72 09/10/24 08:00 09/10/24 07:36 36.4 C L 71 18 137/81 96 09/10/24 05:01 75 09/10/24 03:37 36.7 C 72 18 137/75 97 09/09/24 23:41 36.7 C 75 18 128/73 93 O2 Del Method O2 Flow Rate 09/10/24 10:26 09/10/24 08:00 Room Air 09/10/24 07:36 Nasal Cannula 2.0 09/10/24 05:01 09/10/24 03:37 Nasal Cannula 2.0 09/09/24 23:41 Nasal Cannula 2.0 PG Care Time/CCT Total # of Minutes Spent Total Time Spent with Patient: Total time spent is greater than 50% in coordination of care (as documented) at patient's floor/unit and/or counseling patient: Coding Level of Care Code 45808 SUB INP/OBS CARE 08/23MIN Diagnoses Right ureteral calculus N20.1 Hydronephrosis, right N13.30
--- NOTE | 2024-09-10 11:22 | Pharmacy Report ---
Pharmacy Glycemic Short Note 2 - Date of Service September 10, 2024 - Glycemic Short BSG Results (Last 24 hours): 09/09/24 09/09/24 09/09/24 14:07 17:08 20:49 Glucose POC Glucose 243 H 213 H 195 H 09/10/24 09/10/24 09/10/24 06:10 07:33 10:58 Glucose 237 H POC Glucose 252 H 289 H OUTPATIENT ANTIDIABETIC REGIMEN: * glipizide 5mg po daily * metformin 500mg po bid HbA1c 9.5% on 09/07/24 ASSESSMENT: 09/10: * Consistent daily insulin usage over past 2 days (~80 units) * High-dose PO dexamethasone discontinued after dose yesterday * Blood sugars remain elevated, but will empirically loosen Novolog parameters given steroid discontinuation 09/09: * Steven received 82 units of insulin yesterday, 35 of which were basal. BSGs were: [id number] mg/dL. * Fasting BSG this AM was 215 mg/dL. Patient is NPO this morning for a possible intervention. Of note, patient received 35 units of basal yesterday and had no documented PO intake. Therefore, I am comfortable with increasing basal dose today despite patient being NPO. Suspect diet may be ordered this afternoon but will need to follow to see if patient tolerates. Will give 30 units of basal this AM and likely add a scaled PM basal dose for hyperglycemia. * Correctional insulin was not enough yesterday. Will tighten Novolog parameters again this morning. Tightened upper end of goal range to 140 today. 09/08: * 68 year old male admitted 09/07 with LAURI and possible relapse of multiple myeloma. Pharmacy has been consulted while patient is admitted as he is a Type 2 diabetic and has been started on high dose steroids. * BSG at bedtime last night was 264mg/dL. He was ordered 5 units of Lantus and a weight based bolus insulin regimen with a stress of 2 was started. He only received a total of 9 units of insulin yesterday (5 were basal and 4 were bolus). * Fasting BSG today was 320mg/dL. Lantus 15 units x 1 was ordered and the bolus insulin parameters were tightened to a weight based stress of 3. * BSG continued to rise at lunch time today so the CF was tightened and a Lantus scale (0-20 units) was added for this evening. Overnight checks were also added on since the steroid is being given in the evening. PLAN FOR INPATIENT GLYCEMIC CONTROL: * Hold outpatient oral diabetes medications * Basal insulin * Lantus 30 units SC AM * Lantus 0-5-10 units SC PM (see eMAR for more details) * Bolus insulin * NovoLog per scale ACHS or Q6hrs while NPO * Goal Range: Low 110 mg/dL - High 140 mg/dL * Correction Factor: 15 mg/dL/unit * Nutritional / Prandial insulin per carb ratio of 1 unit per 5 grams CHO consumed
--- NOTE | 2024-09-10 15:16 | Nephrology Progress Note ---
Date of Service September 10, 2024 Assessment & Plan (1) LAURI (acute kidney injury): Plan: improving nonoliguric Stage 1 LAURI, presumably. Presenting creatinine 2.4, peak value 2.7 yesterday, 2.5 today. Baseline creatinine unknown but looking at his med list he appears to be on doses of acyclovir and metformin modified for renal insufficiency, likely advanced CKD 3 though can't say for sure. He was using advil for several days prior to admission. w/ NSAIDS on board and nephritic sediment on presenting UA, differential includes acute interstitial nephritis and minimal change disease; no e/o nephrotic syndrome. no indication currently for discussion of renal replacement therapies. also on differential here is myeloma impacting kidneys which is common; may simply have ATN from the nsaids in setting of metformin and lisinopril use; and of course obstructive nephropathy on differential favor ATN v. AIN v. myeloma involvement +/- role of obstruction here. -repeat UA and quantify proteinuria shows 1.1gm proteinuria; UA still w/ glucosuria and microhematuria as well >> nephritic sediment, possibly c/w AIN or MM; less likely MN or DBN -hold acei, metformin still -continue daily bmp, strict I/O and nephrotoxin avoidance -educated pt on importance moving forward of nsaid avoidance; will need to include that in d/c summary >if this is AIN, would be covered by dexamethasone in any event; would not prolong course to address >>suggest he est w/ box chipper after d/c back to [place] area given multiple issues > stones, MM, NSAIDS, DM, proteinuria >> impacting kidneys Care coordinated w/ Dr Pugh regarding flomax RX, proteinuria status, preliminary neph f/u dispo by [employer]; we are in agreement. (2) Hydronephrosis, right: Plan: w/ stones obstructing > pending urology follow up OP as feasible given severe thrombocytopenia and improved renal fucntion >>>>started flomax daily dose today (3) Thrombocytopenia: Plan: plts 13K today > still severe w/ no e/o active bleeding. on dexamethasone po 3 day course (4) Multiple myeloma: Plan: per hematology, pt likely needs full restaging w/u for MM given severe thrombocytopenia other findings (5) Abdominal pain: Plan: f/u plan after RUQ ff > surgery evaluated and not currently a candidate for elective cholecystectomy Admission and Anticipated Discharge Date Admission Date: September 07, 2024 Subjective no acute interval events clinically; urology plans no intervention at this time; not on flomax; wnats ball out; no bleeding; no sob, no recurrent flank pain Review of Systems 2 Review of Systems: All systems reviewed & are unremarkable except as noted in Subjective Physical Exam 2 Constitutional: well developed and well nourished; no acute distress (lying again in dark room midday) Eyes: EOM intact bilaterally ENMT: Ears: no external ear abnormality Nose: no external nose abnormality Mouth: + dry oral mucous membranes Neck: no nuchal rigidity Respiratory: normal respiratory effort Auscultation: + diminished lung sounds Cardiovascular: RRR, no murmur, no edema Gastrointestinal (Abdomen): Inspection/Auscultation: normal bowel sounds P ercussion/Palpation: abdomen soft; abdomen nontender Musculoskeletal: Extremities: strength 5/5 throughout Skin: no rashes, warm and dry Psychiatric: A+Ox3, euthymic affect Results & Data Vital Signs (Past 12 Hours) Vital Signs Temp Pulse Pulse Resp BP BP Pulse Ox 09/10/24 15:00 36.5 C 77 19 122/72 98 09/10/24 11:50 37.2 C 74 18 113/67 97 09/10/24 10:26 72 09/10/24 08:00 09/10/24 07:36 36.4 C L 71 18 137/81 96 09/10/24 05:01 75 09/10/24 03:37 36.7 C 72 18 137/75 97 O2 Del Method O2 Flow Rate 09/10/24 15:00 Room Air 09/10/24 11:50 Room Air 09/10/24 10:26 09/10/24 08:00 Room Air 09/10/24 07:36 Nasal Cannula 2.0 09/10/24 05:01 09/10/24 03:37 Nasal Cannula 2.0 Laboratory Results 09/10/24 06:10 09/10/24 06:10
--- NOTE | 2024-09-10 16:16 | Hospitalist Progress Note ---
Date of Service September 10, 2024 Assessment & Plan (1) LAURI (acute kidney injury): (2) Abnormal CT scan: (3) Multiple myeloma: Plan Mr. Baeza is a 68 year old gentleman with past medical history remarkable for Multiple Myeloma undergoing active treatment s/p ASCT ~2023 (daratumumab, Velcade, dexamethasone), DMTII, HTN, HLD and GERD who presented to [facility] ED due to flank pain and is admitted for management of thrombocytopenia, hypercalcemia, and LAURI. Pt is from the [facility], follows medically with Jose. Right hydroureteronephrosis Possible pyelonephritis Flank pain -Pt presented with flank pain, no leukocytosis or signs of sepsis at this time -Noted pt currently undergoing chemotherapy -UA w/o signs of infection at this time -CT abd pelvis concerning for R hydro, possible stone per urology and pyelonephritis -Blood Cx x 2 sets NGTD Plan: -IV cefepime, pain meds prn, antiemetics prn -Urology consult, appreciate further recs -PT/OT recommending SNF, however patient declining at this time Hypercalcemia Acute on ?Chronic Kidney Injury Hypomagnesemia Hyperphosphatemia -Ca levels elevated, PTH low at 4.9 -Potentially related to relapse of MM given hypercalcemia and renal insufficiency s/p zolendronic acid and calcitonin per recs of Hematology trend ca -IVF @ 200cc/hr Plan: -replete mag prn -Continue to monitor -Hematology consulted, appreciate recs -Nephrology consulted, appreciate recs Multiple myeloma, concern for relapse Bicytopenia Folate Deficiency B12 Deficiency -Anemia likely in setting of MM -platelets 6K on admission, s/p 1U plt transfusion---> up to 18K -Folate and B12 levels low Plan: -started on Decadron 40mg IV for <M & thrombocytopenia -acyclovir bid held in setting of renal insufficiency, resume as able -Trend labs, transfuse platelets <10 and hgb < 7 -Continue folate and b12 supplements -Continue to monitor -Hematology consulted as above Possible Acute cholecystitis Cholelithiasis -Noted on CT abdomen pelvis, question of gallstones vs. layering sludge -Direct bili elevated, otherwise LFTs normal at this time -US gallbladder concerning for acute cholecystitis Plan: -General Surgery consulted, appreciate recs -Continue to monitor Insomnia -Pt usually takes ativan 0.5mg qhs scheduled -Pt very drowsy on exam -Will make prn in setting of narcotic use concurrently for pain as above Diabetes Mellitus Type II -Hgba1c of 9.5 -Basal bolus insulin while on steroids started above -Glycemic consult HTN -Holding home lisinopril 10mg -Holding in setting of kidney dysfunction -Labetolol prn for SBP > 175mmhg Depression -Continue mirtazapine 15mg qhs -continue escitalopram 20mg GERD -Prilosec 40mg Feeding/fluids: diabetic diet Analgesia: tylenol Sedation: na Thromboprophylaxis: start SCD Head up position: na Ulcer prophylaxis: start protonix (on decadron) Glycemic control: insulin Spontaneous breathing trial: na Bowel care: miralax prn Indwelling catheter removal: remove today Deescalation of antibiotics: cefepime I spent a total of 50 minutes in direct patient care, including [id number] time with the patient and/or family, reviewing medical records, ordering and reviewing diagnostic tests, and coordinating care with other healthcare providers. This time includes: history taking, physical examination, medical decision making, counseling, ECG interpretation, imaging interpretation, lab interpretation, orders, and education, excluding time spent in the performance of separately billed services. Admission and Anticipated Discharge Date Admission Date: September 07, 2024 Subjective Patient seen and examined at bedside. Patient states he is doing okay today. Not sleeping well in the hospital. States he wants the Ball out. Review of Systems Review of Systems: CONSTITUTIONAL: fatigue, weakness EYES: Patient denies any visual symptoms. EARS, NOSE, AND THROAT: No difficulties with hearing. No symptoms of rhinitis or sore throat. CARDIOVASCULAR: Patient denies chest pains, palpitations, orthopnea and paroxysmal nocturnal dyspnea. RESPIRATORY: No dyspnea on exertion, no wheezing or cough. GI: No nausea, vomiting, diarrhea, constipation, abdominal pain, hematochezia or melena. : No urinary hesitancy or dribbling. No nocturia or urinary frequency. No abnormal urethral discharge. MUSCULOSKELETAL: No myalgias or arthralgias. NEUROLOGIC: No chronic headaches, no seizures. Patient denies numbness, tingling or weakness. PSYCHIATRIC: Patient denies problems with mood disturbance. No problems with anxiety. ENDOCRINE: No excessive urination or excessive thirst. DERMATOLOGIC: Patient denies any rashes or skin changes. Physical Exam Physical Exam: Gen: A&O 3 NAD HEENT: NCAT, EOMI, not icteric. External ears normal. No rhinorrhea. Moist mucous membranes. Neck: Supple, full range of motion, no observable masses, No meningeal sign. Lungs: No Respiratory distress. CV: RRR, no edema. Abdomen: Soft, nondistended, No rebound tenderness. MSK: No joint swelling, no redness. ball noted Skin: No rashes, petechiae, lesions. Normal color per patient. Neuro: Normal Gait, Grossly intact. Psych: Appropriate for situation. Results & Data Results & Data Vital Signs (Past 12 Hours) Vital Signs Temp Pulse Pulse Resp BP Pulse Ox O2 Del Method 09/10/24 15:00 36.5 C 77 19 122/72 98 Room Air 09/10/24 11:50 37.2 C 74 18 113/67 97 Room Air 09/10/24 10:26 72 09/10/24 08:00 Room Air 09/10/24 07:36 36.4 C L 71 18 137/81 96 Nasal Cannula 09/10/24 05:01 75 O2 Flow Rate 09/10/24 15:00 09/10/24 11:50 09/10/24 10:26 09/10/24 08:00 09/10/24 07:36 2.0 09/10/24 05:01 Laboratory Results - Recently reviewed, creatinine is improving, discussed case with nephrology, platlets continue to be critically low but no bleeding Medications Administered Cyanocobalamin (Cyanocobalamin (B-12) 500 Mcg Tablet) 1,000 mcg PO QAM JAKI Stop: 10/08/24 08:59 Last Admin: 09/10/24 08:15 Dose: 1,000 mcg Documented By: Admin: 09/09/24 08:09 Dose: 1,000 mcg Documented By: Admin: 09/08/24 09:04 Dose: 1,000 mcg Documented By: LELAND Escitalopram Oxalate (Escitalopram Oxalate 20 Mg Tab) 20 mg PO DAILY JAKI Stop: 10/08/24 08:59 Last Admin: 09/10/24 08:16 Dose: 20 mg Documented By: Admin: 09/09/24 08:07 Dose: 20 mg Documented By: Admin: 09/08/24 09:04 Dose: 20 mg Documented By: LELAND Folic Acid (Folic Acid 1 Mg Tab) 1 mg PO QAM JAKI Stop: 10/08/24 08:59 Last Admin: 09/10/24 08:16 Dose: 1 mg Documented By: Admin: 09/09/24 08:09 Dose: 1 mg Documented By: Admin: 09/08/24 09:04 Dose: 1 mg Documented By: LELAND Hydromorphone HCl (Hydromorphone Inj 1 Mg/Ml Syringe) 1 mg IV Q6H PRN PRN Reason: Pain Stop: 09/21/24 16:53 Last Admin: 09/07/24 19:46 Dose: 1 mg Documented By: TIMOTHY Insulin Aspart (Insulin Aspart Per Unit Charge) 0 units SC ACHS [facility] Stop: 10/07/24 20:59 Last Admin: 09/10/24 12:52 Dose: 11 units Documented By: REAGAN Co-signed By: BALWINDER Admin: 09/10/24 08:14 Dose: 24 units Documented By: EP Co-signed By: OBEY Admin: 09/09/24 21:19 Dose: 5 units Documented By: NIKKO Co-signed By: JACOB Admin: 09/09/24 18:14 Dose: 10 units Documented By: VALERIO Co-signed By: LELAND Admin: 09/09/24 14:12 Dose: 9 units Documented By: VALERIO Co-signed By: LELAND Admin: 09/09/24 08:06 Dose: 7 units Documented By: VALERIO Co-signed By: LELAND Admin: 09/08/24 20:32 Dose: 6 units Documented By: TIMOTHY Co-signed By: KATLYN Admin: 09/08/24 17:25 Dose: 11 units Documented By: LELAND Co-signed By: VALERIO Admin: 09/08/24 12:09 Dose: 16 units Documented By: LELAND Co-signed By: DINESH Admin: 09/08/24 09:10 Dose: 7 units Documented By: LELAND Co-signed By: VALERIO Admin: 09/07/24 21:49 Dose: 4 units Documented By: TIMOTHY Co-signed By: KATLYN Insulin Glargine (Lantus Per Unit Charge) 30 units SC QAM [facility] Stop: 10/09/24 08:59 Last Admin: 09/10/24 08:14 Dose: 30 units Documented By: EP Co-signed By: OBEY Admin: 09/09/24 09:09 Dose: 30 units Documented By: LELAND Co-signed By: VALERIO Lidocaine (Lidocaine 5% 1 Patch) 1 patch TD QAM [facility] Stop: 10/08/24 08:59 Last Admin: 09/10/24 09:42 Dose: Not Given Documented By: Admin: 09/09/24 10:58 Dose: Not Given Documented By: Admin: 09/08/24 10:39 Dose: 1 patch Documented By: LELAND Lorazepam (Lorazepam 0.5 Mg Tab) 0.5 mg PO PM PRN PRN Reason: insomnia Stop: 10/07/24 20:59 Last Admin: 09/09/24 21:22 Dose: 0.5 mg Documented By: Admin: 09/08/24 22:00 Dose: 0.5 mg Documented By: TIMOTHY Mirtazapine (Mirtazapine Tab 15 Mg Tab) 15 mg PO PM JAKI Stop: 10/07/24 20:59 Last Admin: 09/09/24 21:23 Dose: 15 mg Documented By: Admin: 09/08/24 20:32 Dose: 15 mg Documented By: Admin: 09/07/24 21:49 Dose: 15 mg Documented By: TIMOTHY Miscellaneous (Remove Lidoderm Patch) 1 each N/A DAILY@2100 [facility] Stop: 10/07/24 20:59 Last Admin: 09/09/24 21:22 Dose: Not Given Documented By: Admin: 09/08/24 20:33 Dose: 1 each Documented By: Admin: 09/07/24 21:41 Dose: Not Given Documented By: TIMOTHY Ondansetron HCl (Ondansetron Inj 2 Mg/Ml 2 Ml Vial) 4 mg IV Q6H PRN PRN Reason: Nausea Stop: 10/07/24 18:38 Last Admin: 09/07/24 19:46 Dose: 4 mg Documented By: TIMOTHY
[2024-09-10] MEDS: TAMSULOSIN HCL 0.4 MG CAP PO SCH (17:07)
[2024-09-10] MEDS: LANTUS PER UNIT CHARGE SC SCH (21:18)
[2024-09-11 06:26] LABS: Albumin Globulin Ratio 0.8 (0.9-2); Albumin Level 2.9 gm/dl (3.4-5.0); BUN Creatinine Ratio 30.5 (10-20); Bilirubin,Total 0.4 mg/dl (0.2-1.0); Calcium 8.1 mg/dl (8.6-10.3); Creatinine Clr Calc Pharmacy 39.4 ml/min; Globulin 3.8 gm/dl (2.5-4.0); Magnesium 1.7 mg/dl (1.7-2.4); Phosphorus 2.6 mg/dl (2.5-4.9); Potassium 3.5 mmol/L (3.5-5.1); Total Protein 6.7 gm/dl (6.0-8.3)
[2024-09-11 06:36] LABS: Hematocrit (blood only) 22.2 % (42.0-52.0); Hemoglobin 7.6 g/dl (14.0-18.0); Mean Corpuscular Hgb Conc 34.2 g/dL (32.0-36.0); Mean Corpuscular Volume 90.6 fL (80.0-100.0); Mean Platelet Volume 10.7 fL (9.4-12.4); Platelet Count 10 K/uL (130-400); RDW Coefficient of Variation 14.6 % (11.5-14.5); RDW Standard Deviation 47.6 fL (36.4-46.3); Red Blood Count 2.45 M/uL (4.70-6.10); White Blood Count 3.78 K/ul (4.8-10.8)
[2024-09-11 07:01] LABS: Immature Granulocytes # (auto) 0.06 K/uL (0.01-0.20); Immature Granulocytes % (auto) 1.6 %; Lymphocytes # (auto) 1.75 K/uL (1.20-3.40); Lymphocytes % (auto) 46.3 %; Monocytes # (auto) 0.26 K/uL (0.11-0.59); Monocytes % (auto) 6.9 %; Neutrophils # (auto) 1.71 K/uL (1.40-6.50); Neutrophils % (auto) 45.2 %; RBC Morphology Unremarkable
[2024-09-11] MEDS ORDERED: SODIUM CHLORIDE 0.9% 50 ML IV PRN (08:37)
[2024-09-11] MEDS ORDERED: SODIUM CHLORIDE 0.9% 100 ML IV PRN (08:37)
--- NOTE | 2024-09-11 08:38 | Nephrology Progress Note ---
Date of Service September 11, 2024 Assessment & Plan (1) LAURI (acute kidney injury): Plan: further improving nonoliguric Stage 1 LAURI, presumably. Presenting creatinine 2.4, peak value 2.7 yesterday, 2.0 today. Baseline creatinine unknown but looking at his med list he appears to be on doses of acyclovir and metformin modified for renal insufficiency, likely advanced CKD 3 though can't say for sure. He was using advil for several days prior to admission. w/ NSAIDS on board and nephritic sediment on presenting UA, differential includes acute interstitial nephritis and minimal change disease; no e/o nephrotic syndrome. also on differential here is myeloma impacting kidneys which is common; may simply have ATN from the nsaids in setting of metformin and lisinopril use; and of course obstructive nephropathy on differential. no indication currently for discussion of renal replacement therapies. repeat urine studies show 1.1gm proteinuria; UA still w/ glucosuria and microhematuria as well >> nephritic sediment, possibly c/w AIN or MM; less likely MN or DBN favor AIN v. myeloma involvement +/- role of obstruction here. -hold acei, metformin still -continue daily bmp, strict I/O and nephrotoxin avoidance -educated pt on importance moving forward of nsaid avoidance; will need to include that in d/c summary >if this is AIN, would be covered by dexamethasone in any event; would not prolong course to address >>suggest he est w/ picture framer after d/c back to [place] area given multiple issues > stones, MM, NSAIDS, DM, proteinuria >> impacting kidneys Care coordinated w/ Dr Pugh regarding plts and flomax by [employer]; we are in agreement. (2) Hydronephrosis, right: Plan: w/ stones obstructing > pending urology follow up OP as feasible given severe thrombocytopenia and improved renal function >started flomax daily dose 2/ and will continue (3) Thrombocytopenia: Plan: plts 10K today > still severe w/ no e/o active bleeding. s/p dexamethasone po 3 day course. for plts today ? if indication for further steroids or larger plt transfusion >> did d/w hospitalist (4) Multiple myeloma: Plan: per hematology, pt likely needs full restaging w/u for MM given severe thrombocytopenia other findings. (5) Abdominal pain: Plan: f/u plan after RUQ ff > surgery evaluated and not currently a candidate for elective cholecystectomy Admission and Anticipated Discharge Date Admission Date: September 07, 2024 Subjective no acute interval events. for plts d/t plt count 10. no sob, no n/v, no uncontrolled pain; voiding well after ball removal; teaches back w/ me today need to avoid nsaids Review of Systems 2 Review of Systems: All systems reviewed & are unremarkable except as noted in Subjective Physical Exam 2 Constitutional: well developed and well nourished; no acute distress (sitting up in bed) Eyes: EOM intact bilaterally ENMT: Ears: no external ear abnormality Nose: no external nose abnormality Mouth: + dry oral mucous membranes Neck: no nuchal rigidity Respiratory: normal respiratory effort Auscultation: + diminished lung sounds Cardiovascular: RRR, no murmur, no edema Gastrointestinal (Abdomen): Inspection/Auscultation: normal bowel sounds P ercussion/Palpation: abdomen soft; abdomen nontender Musculoskeletal: Extremities: strength 5/5 throughout Skin: no rashes, warm and dry Psychiatric: A+Ox3, euthymic affect Results & Data Vital Signs (Past 12 Hours) Vital Signs Temp Pulse Pulse Resp BP BP Pulse Ox 09/11/24 07:36 36.5 C 67 19 129/71 98 09/11/24 03:16 36.6 C 73 18 124/67 94 09/10/24 23:04 36.6 C 72 18 121/70 93 09/10/24 22:16 72 O2 Del Method 09/11/24 07:36 Room Air 09/11/24 03:16 Room Air 09/10/24 23:04 Room Air 09/10/24 22:16 Laboratory Results 09/11/24 05:47 09/11/24 05:47
--- NOTE | 2024-09-11 11:41 | Pharmacy Report ---
Pharmacy Glycemic Short Note 2 - Date of Service September 11, 2024 - Glycemic Short BSG Results (Last 24 hours): 09/10/24 09/10/24 09/11/24 16:11 20:28 05:47 Glucose 92 POC Glucose 151 H 171 H 09/11/24 09/11/24 09/11/24 07:35 08:38 11:17 Glucose POC Glucose 82 112 H 141 H OUTPATIENT ANTIDIABETIC REGIMEN: * glipizide 5mg po daily * metformin 500mg po bid HbA1c 9.5% on 09/07/24 ASSESSMENT: 09/11 * Patient required a total of 75 units of insulin yesterday (35 units were basal and 42 units were bolus). * BSGs significantly lower after the discontinuation of high dose po dexamethasone. Fasting BSG was 112mg/dL this morning. AM Lantus was held today and parameters of bolus insulin were loosened more. * Will leave Lantus scale at HS incase BSGs start to rise again this evening with the significant decrease in insulin. 09/10: * Consistent daily insulin usage over past 2 days (~80 units) * High-dose PO dexamethasone discontinued after dose yesterday * Blood sugars remain elevated, but will empirically loosen Novolog parameters given steroid discontinuation 09/09: * Steven received 82 units of insulin yesterday, 35 of which were basal. BSGs were: [id number] mg/dL. * Fasting BSG this AM was 215 mg/dL. Patient is NPO this morning for a possible intervention. Of note, patient received 35 units of basal yesterday and had no documented PO intake. Therefore, I am comfortable with increasing basal dose today despite patient being NPO. Suspect diet may be ordered this afternoon but will need to follow to see if patient tolerates. Will give 30 units of basal this AM and likely add a scaled PM basal dose for hyperglycemia. * Correctional insulin was not enough yesterday. Will tighten Novolog parameters again this morning. Tightened upper end of goal range to 140 today. 09/08: * 68 year old male admitted 09/07 with LAURI and possible relapse of multiple myeloma. Pharmacy has been consulted while patient is admitted as he is a Type 2 diabetic and has been started on high dose steroids. * BSG at bedtime last night was 264mg/dL. He was ordered 5 units of Lantus and a weight based bolus insulin regimen with a stress of 2 was started. He only received a total of 9 units of insulin yesterday (5 were basal and 4 were bolus). * Fasting BSG today was 320mg/dL. Lantus 15 units x 1 was ordered and the bolus insulin parameters were tightened to a weight based stress of 3. * BSG continued to rise at lunch time today so the CF was tightened and a Lantus scale (0-20 units) was added for this evening. Overnight checks were also added on since the steroid is being given in the evening. PLAN FOR INPATIENT GLYCEMIC CONTROL: * Hold outpatient oral diabetes medications * Basal insulin * Lantus 0-5-10 units SC PM (see eMAR for more details) * Bolus insulin * NovoLog per scale ACHS or Q6hrs while NPO * Goal Range: Low 110 mg/dL - High 140 mg/dL * Correction Factor: 25 mg/dL/unit * Nutritional / Prandial insulin per carb ratio of 1 unit per 9 grams CHO consumed
--- NOTE | 2024-09-11 14:28 | Hospitalist Progress Note ---
Date of Service September 11, 2024 Assessment & Plan (1) LAURI (acute kidney injury): (2) Abnormal CT scan: (3) Multiple myeloma: Plan Mr. Baeza is a 68 year old gentleman with past medical history remarkable for Multiple Myeloma undergoing active treatment s/p ASCT ~2023 (daratumumab, Velcade, dexamethasone), DMTII, HTN, HLD and GERD who presented to [facility] ED due to flank pain and is admitted for management of thrombocytopenia, hypercalcemia, and LAURI. Pt is from the [facility], follows medically with Jose. Right hydroureteronephrosis Possible pyelonephritis Flank pain -Pt presented with flank pain, no leukocytosis or signs of sepsis at this time -Noted pt currently undergoing chemotherapy -UA w/o signs of infection at this time -CT abd pelvis concerning for R hydro, possible stone per urology and pyelonephritis -Blood Cx x 2 sets NGTD Plan: -IV cefepime, pain meds prn, antiemetics prn -Urology consult, appreciate further recs -PT/OT recommending SNF, however patient declining at this time Hypercalcemia Acute on ?Chronic Kidney Injury Hypomagnesemia Hyperphosphatemia -Ca levels elevated, PTH low at 4.9 -Potentially related to relapse of MM given hypercalcemia and renal insufficiency s/p zolendronic acid and calcitonin per recs of Hematology trend ca -IVF @ 200cc/hr Plan: -replete mag prn -Continue to monitor -Hematology consulted, appreciate recs -Nephrology consulted, appreciate recs Multiple myeloma, concern for relapse Bicytopenia Folate Deficiency B12 Deficiency -Anemia likely in setting of MM -platelets 6K on admission, s/p 1U plt transfusion---> up to 18K -Folate and B12 levels low Plan: -continue Decadron 40mg IV for <M & thrombocytopenia -acyclovir bid held in setting of renal insufficiency, resume as able -Trend labs, transfuse platelets <10 and hgb < 7 -Continue folate and b12 supplements -Continue to monitor -transfuse one unit of platlets given platlet of 10, recent chemo and high risk for bleed -Hematology consulted as above Possible Acute cholecystitis Cholelithiasis -Noted on CT abdomen pelvis, question of gallstones vs. layering sludge -Direct bili elevated, otherwise LFTs normal at this time -US gallbladder concerning for acute cholecystitis Plan: -General Surgery consulted, appreciate recs -Continue to monitor Insomnia -Pt usually takes ativan 0.5mg qhs scheduled -Will make prn in setting of narcotic use concurrently for pain as above Diabetes Mellitus Type II -Hgba1c of 9.5 -Basal bolus insulin while on steroids started above -Glycemic consult HTN -Holding home lisinopril 10mg -Holding in setting of kidney dysfunction -Labetolol prn for SBP > 175mmhg Depression -Continue mirtazapine 15mg qhs -continue escitalopram 20mg GERD -Prilosec 40mg Feeding/fluids: diabetic diet Analgesia: tylenol Sedation: na Thromboprophylaxis: SCD Head up position: na Ulcer prophylaxis: start protonix (on decadron) Glycemic control: insulin Spontaneous breathing trial: na Bowel care: miralax prn Indwelling catheter removal: remove today Deescalation of antibiotics: cefepime I spent a total of 55 minutes in direct patient care, including [id number] time with the patient and/or family, reviewing medical records, ordering and reviewing diagnostic tests, and coordinating care with other healthcare providers. This time includes: history taking, physical examination, medical decision making, counseling, ECG interpretation, imaging interpretation, lab interpretation, orders, and education, excluding time spent in the performance of separately billed services. Admission and Anticipated Discharge Date Admission Date: September 07, 2024 Subjective Patient seen and examined at bedside. Patient continues to feel well, no bleeding at this time. Understands that his platelets are 10 and is okay with staying for platelet transfusion before discharge tomorrow. Review of Systems Review of Systems: CONSTITUTIONAL: fatigue, weakness, improved today EYES: Patient denies any visual symptoms. EARS, NOSE, AND THROAT: No difficulties with hearing. No symptoms of rhinitis or sore throat. CARDIOVASCULAR: Patient denies chest pains, palpitations, orthopnea and paroxysmal nocturnal dyspnea. RESPIRATORY: No dyspnea on exertion, no wheezing or cough. GI: No nausea, vomiting, diarrhea, constipation, abdominal pain, hematochezia or melena. : No urinary hesitancy or dribbling. No nocturia or urinary frequency. No abno rmal urethral discharge. MUSCULOSKELETAL: No myalgias or arthralgias. NEUROLOGIC: No chronic headaches, no seizures. Patient denies numbness, tingling or weakness. PSYCHIATRIC: Patient denies problems with mood disturbance. No problems with anxiety. ENDOCRINE: No excessive urination or excessive thirst. DERMATOLOGIC: Patient denies any rashes or skin changes. Physical Exam Physical Exam: Gen: A&O 3 NAD HEENT: NCAT, EOMI, not icteric. External ears normal. No rhinorrhea. Moist mucous membranes. Neck: Supple, full range of motion, no observable masses, No meningeal sign. Lungs: No Respiratory distress. CV: RRR, no edema. Abdomen: Soft, nondistended, No rebound tenderness. MSK: No joint swelling, no redness. ball noted Skin: No rashes, petechiae, lesions. Normal color per patient. Neuro: Normal Gait, Grossly intact. Psych: Appropriate for situation. Results & Data Results & Data Vital Signs (Past 12 Hours) Vital Signs Temp Pulse Pulse Resp BP BP Pulse Ox 09/11/24 11:51 36.8 C 75 17 128/75 96 09/11/24 10:00 72 09/11/24 07:36 36.5 C 67 19 129/71 98 09/11/24 03:16 36.6 C 73 18 124/67 94 O2 Del Method 09/11/24 11:51 Room Air 09/11/24 10:00 09/11/24 07:36 Room Air 09/11/24 03:16 Room Air Laboratory Results -personally reviewed, stable Hgb at this time, platlets of 10 Medications Administered Cyanocobalamin (Cyanocobalamin (B-12) 500 Mcg Tablet) 1,000 mcg PO QAM JAKI Stop: 10/08/24 08:59 Last Admin: 09/11/24 09:17 Dose: 1,000 mcg Documented By: Admin: 09/10/24 08:15 Dose: 1,000 mcg Documented By: Admin: 09/09/24 08:09 Dose: 1,000 mcg Documented By: Admin: 09/08/24 09:04 Dose: 1,000 mcg Documented By: LELAND Escitalopram Oxalate (Escitalopram Oxalate 20 Mg Tab) 20 mg PO DAILY JAKI Stop: 10/08/24 08:59 Last Admin: 09/10/24 08:16 Dose: 20 mg Documented By: Admin: 09/09/24 08:07 Dose: 20 mg Documented By: Admin: 09/08/24 09:04 Dose: 20 mg Documented By: LELAND Folic Acid (Folic Acid 1 Mg Tab) 1 mg PO QAM [facility] Stop: 10/08/24 08:59 Last Admin: 09/11/24 09:18 Dose: 1 mg Documented By: Admin: 09/10/24 08:16 Dose: 1 mg Documented By: Admin: 09/09/24 08:09 Dose: 1 mg Documented By: Admin: 09/08/24 09:04 Dose: 1 mg Documented By: LELAND Hydromorphone HCl (Hydromorphone Inj 1 Mg/Ml Syringe) 1 mg IV Q6H PRN PRN Reason: Pain Stop: 09/21/24 16:53 Last Admin: 09/07/24 19:46 Dose: 1 mg Documented By: TIMOTHY Insulin Aspart (Insulin Aspart Per Unit Charge) 0 units SC ACHS [facility] Stop: 10/07/24 20:59 Last Admin: 09/11/24 12:20 Dose: 7 units Documented By: REAGAN Co-signed By: OBEY Admin: 09/11/24 09:08 Dose: 3 units Documented By: EP Co-signed By: OBEY Admin: 09/10/24 21:17 Dose: 3 units Documented By: NIKKO Co-signed By: RENAN Admin: 09/10/24 17:43 Dose: 4 units Documented By: REAGAN Co-signed By: OBEY Admin: 09/10/24 12:52 Dose: 11 units Documented By: REAGAN Co-signed By: BALWINDER Admin: 09/10/24 08:14 Dose: 24 units Documented By: EP Co-signed By: OBEY Admin: 09/09/24 21:19 Dose: 5 units Documented By: NIKKO Co-signed By: JACOB Admin: 09/09/24 18:14 Dose: 10 units Documented By: VALERIO Co-signed By: LELAND Admin: 09/09/24 14:12 Dose: 9 units Documented By: VALERIO Co-signed By: LELAND Admin: 09/09/24 08:06 Dose: 7 units Documented By: VALERIO Co-signed By: LELAND Admin: 09/08/24 20:32 Dose: 6 units Documented By: TIMOTHY Co-signed By: KATLYN Admin: 09/08/24 17:25 Dose: 11 units Documented By: LELAND Co-signed By: VALERIO Admin: 09/08/24 12:09 Dose: 16 units Documented By: LELAND Co-signed By: DINESH Admin: 09/08/24 09:10 Dose: 7 units Documented By: LELAND Co-signed By: VALERIO Admin: 09/07/24 21:49 Dose: 4 units Documented By: TIMOTHY Co-signed By: KATLYN Insulin Glargine (Lantus Per Unit Charge) 0 units SC [facility]; Protocol Stop: 10/10/24 20:59 Last Admin: 09/10/24 21:18 Dose: 5 units Documented By: NIKKO Co-signed By: RENAN Lidocaine (Lidocaine 5% 1 Patch) 1 patch TD QAM [facility] Stop: 10/08/24 08:59 Last Admin: 09/11/24 12:20 Dose: Not Given Documented By: Admin: 09/10/24 09:42 Dose: Not Given Documented By: Admin: 09/09/24 10:58 Dose: Not Given Documented By: Admin: 09/08/24 10:39 Dose: 1 patch Documented By: LELAND Lorazepam (Lorazepam 0.5 Mg Tab) 0.5 mg PO PM PRN PRN Reason: insomnia Stop: 10/07/24 20:59 Last Admin: 09/10/24 21:16 Dose: 0.5 mg Documented By: Admin: 09/09/24 21:22 Dose: 0.5 mg Documented By: Admin: 09/08/24 22:00 Dose: 0.5 mg Documented By: TIMOTHY Mirtazapine (Mirtazapine Tab 15 Mg Tab) 15 mg PO PM [facility] Stop: 10/07/24 20:59 Last Admin: 09/10/24 21:17 Dose: 15 mg Documented By: Admin: 09/09/24 21:23 Dose: 15 mg Documented By: Admin: 09/08/24 20:32 Dose: 15 mg Documented By: Admin: 09/07/24 21:49 Dose: 15 mg Documented By: TIMOTHY Miscellaneous (Remove Lidoderm Patch) 1 each N/A DAILY@2100 [facility] Stop: 10/07/24 20:59 Last Admin: 09/10/24 21:16 Dose: Not Given Documented By: Admin: 09/09/24 21:22 Dose: Not Given Documented By: Admin: 09/08/24 20:33 Dose: 1 each Documented By: Admin: 09/07/24 21:41 Dose: Not Given Documented By: TIMOTHY Ondansetron HCl (Ondansetron Inj 2 Mg/Ml 2 Ml Vial) 4 mg IV Q6H PRN PRN Reason: Nausea Stop: 10/07/24 18:38 Last Admin: 09/07/24 19:46 Dose: 4 mg Documented By: TIMOTHY Tamsulosin HCl (Tamsulosin Hcl 0.4 Mg Cap) [facility] Stop: 10/10/24 15:09 Last Admin: 09/11/24 09:19 Dose: 0.4 mg Documented By: Admin: 09/10/24 17:07 Dose: 0.4 mg Documented By: REAGAN
[2024-09-11] MEDS: PANTOprazole 40 MG TAB PO SCH (16:18)
[2024-09-11] MEDS: ACETAMINOPHEN 325 MG TAB PO PRN (16:20)
--- NOTE | 2024-09-12 09:07 | Pharmacy Report ---
Pharmacy Glycemic Short Note 2 - Date of Service September 12, 2024 - Glycemic Short BSG Results (Last 24 hours): 09/11/24 09/11/24 09/11/24 11:17 16:16 20:29 POC Glucose 141 H 138 H 142 H 09/12/24 07:30 POC Glucose 153 H OUTPATIENT ANTIDIABETIC REGIMEN: * glipizide 5mg po daily * metformin 500mg po bid HbA1c 9.5% on 09/07/24 ASSESSMENT: 09/12 * Patient required a significantly lower amount of insulin yesterday (15 units total and all were bolus). * Fasting BSG was 153mg/dL this morning. Will not restart AM Lantus at this time as BSGs have been much better controlled after the steroid was discontinued. Will adjust the order for the Lantus scale at HS. He will receive 5 units of Lantus if his BSG rises above 170mg/dL. * BSG at lunch was 107mg/dL so loosened bolus insulin parameters. 09/11 * Patient required a total of 75 units of insulin yesterday (35 units were basal and 42 units were bolus). * BSGs significantly lower after the discontinuation of high dose po dexamethasone. Fasting BSG was 112mg/dL this morning. AM Lantus was held today and parameters of bolus insulin were loosened more. * Will leave Lantus scale at HS incase BSGs start to rise again this evening with the significant decrease in insulin. 09/10: * Consistent daily insulin usage over past 2 days (~80 units) * High-dose PO dexamethasone discontinued after dose yesterday * Blood sugars remain elevated, but will empirically loosen Novolog parameters given steroid discontinuation 09/09: * Steven received 82 units of insulin yesterday, 35 of which were basal. BSGs were: [id number] mg/dL. * Fasting BSG this AM was 215 mg/dL. Patient is NPO this morning for a possible intervention. Of note, patient received 35 units of basal yesterday and had no documented PO intake. Therefore, I am comfortable with increasing basal dose today despite patient being NPO. Suspect diet may be ordered this afternoon but will need to follow to see if patient tolerates. Will give 30 units of basal this AM and likely add a scaled PM basal dose for hyperglycemia. * Correctional insulin was not enough yesterday. Will tighten Novolog parameters again this morning. Tightened upper end of goal range to 140 today. 09/08: * 68 year old male admitted 09/07 with LAURI and possible relapse of multiple myeloma. Pharmacy has been consulted while patient is admitted as he is a Type 2 diabetic and has been started on high dose steroids. * BSG at bedtime last night was 264mg/dL. He was ordered 5 units of Lantus and a weight based bolus insulin regimen with a stress of 2 was started. He only received a total of 9 units of insulin yesterday (5 were basal and 4 were bolus). * Fasting BSG today was 320mg/dL. Lantus 15 units x 1 was ordered and the bolus insulin parameters were tightened to a weight based stress of 3. * BSG continued to rise at lunch time today so the CF was tightened and a Lantus scale (0-20 units) was added for this evening. Overnight checks were also added on since the steroid is being given in the evening. PLAN FOR INPATIENT GLYCEMIC CONTROL: * Hold outpatient oral diabetes medications * Basal insulin * Lantus 0-5 units SC PM (see eMAR for more details) * Bolus insulin * NovoLog per scale ACHS or Q6hrs while NPO * Goal Range: Low 110 mg/dL - High 140 mg/dL * Correction Factor: 35 mg/dL/unit * Nutritional / Prandial insulin per carb ratio of 1 unit per 15 grams CHO consumed
[2024-09-12 11:24] LABS: Hematocrit (blood only) 25.8 % (42.0-52.0); Hemoglobin 8.7 g/dl (14.0-18.0); Mean Corpuscular Hemoglobin 30.5 pg (25.0-34.0); Mean Corpuscular Hgb Conc 33.7 g/dL (32.0-36.0); Mean Corpuscular Volume 90.5 fL (80.0-100.0); Mean Platelet Volume 9.5 fL (9.4-12.4); Platelet Count 6 K/uL (130-400); RDW Coefficient of Variation 14.9 % (11.5-14.5); RDW Standard Deviation 49.7 fL (36.4-46.3); Red Blood Count 2.85 M/uL (4.70-6.10); White Blood Count 3.09 K/ul (4.8-10.8)
[2024-09-12 11:39] LABS: Albumin Globulin Ratio 0.7 (0.9-2); BUN Creatinine Ratio 26.3 (10-20); Bilirubin,Total 0.4 mg/dl (0.2-1.0); Calcium 7.7 mg/dl (8.6-10.3); Creatinine Clr Calc Pharmacy 44.2 ml/min; Globulin 4.2 gm/dl (2.5-4.0); Potassium 3.8 mmol/L (3.5-5.1); Total Protein 7.2 gm/dl (6.0-8.3)
[2024-09-12 12:29] VITALS: BP 118/68; PULSE 74; RESP 16; TEMP 97.7; O2SAT 96
--- NOTE | 2024-09-12 16:00 | Discharge Summary ---
Discharge Summary Date of Service September 12, 2024 Principal Dx & Hospital Course #1 = Principal Diagnosis (1) LAURI (acute kidney injury): (2) Abnormal CT scan: (3) Multiple myeloma: Plan Mr. Baeza is a 68 year old gentleman with past medical history remarkable for Multiple Myeloma undergoing active treatment s/p ASCT ~2023 (daratumumab, Velcade, dexamethasone), DMTII, HTN, HLD and GERD who presented to [facility] ED due to flank pain and is admitted for management of thrombocytopenia, hypercalcemia, and LAURI. Pt is from the [facility], follows medically with Jsoe. Right hydroureteronephrosis Possible pyelonephritis Flank pain -Pt presented with flank pain, no leukocytosis or signs of sepsis at this time -Noted pt currently undergoing chemotherapy -UA w/o signs of infection at this time -CT abd pelvis concerning for R hydro, possible stone per urology and pyelonephritis -Blood Cx x 2 sets NGTD Plan: -Urology consult, appreciate further recs -PT/OT recommending SNF, however patient declining at this time Hypercalcemia Acute on ?Chronic Kidney Injury Hypomagnesemia Hyperphosphatemia -Ca levels elevated, PTH low at 4.9 -Potentially related to relapse of MM given hypercalcemia and renal insufficiency s/p zolendronic acid and calcitonin per recs of Hematology trend ca -resolved Plan: -replete mag prn -Continue to monitor -Hematology consulted, appreciate recs -Nephrology consulted, appreciate recs Multiple myeloma, concern for relapse Bicytopenia Folate Deficiency B12 Deficiency -Anemia likely in setting of MM -platelets 6K on admission, s/p 1U plt transfusion---> up to 18K -Folate and B12 levels low Plan: -Trend labs, transfuse platelets <10 and hgb < 7 -Continue folate and b12 supplements -Continue to monitor -given 2 units of blood and 1 unit of platlets over hospitalization, patient is asymptomatic and not bleeding at this time Possible Acute cholecystitis Cholelithiasis -Noted on CT abdomen pelvis, question of gallstones vs. layering sludge -Direct bili elevated, otherwise LFTs normal at this time -US gallbladder concerning for acute cholecystitis Plan: -General Surgery consulted, appreciate recs -Continue to monitor Insomnia -Pt usually takes ativan 0.5mg qhs scheduled Diabetes Mellitus Type II -Hgba1c of 9.5 -Basal bolus insulin while on steroids started above -Glycemic consult HTN -Holding home lisinopril 10mg Depression -Continue mirtazapine 15mg qhs -continue escitalopram 20mg GERD -Prilosec 40mg Notes For Next Care Provider Mr. Baeza is a 68 year old gentleman with past medical history remarkable for Multiple Myeloma undergoing active treatment s/p ASCT ~2023 (daratumumab, Velcade, dexamethasone), DMTII, HTN, HLD and GERD who presented to [facility] ED due to flank pain and is admitted for management of thrombocytopenia, hypercalcemia, and LAURI. ONcology and nephrology was consulted, recommended medical management with fluids and zoledronic acid. Hypercalcemia improved as did creatinine with fluids and medical management. Oncology recommended restaging and more immediate treatment upon discharge. Discussed with nephrology and oncology, given patient is asymptomatic and not bleeding, and per shared decision making with patient (and patient not wanting rehab), patient is medically optimized for discharge. He understands he is at higher risk for bleed with a platlet level of 6 and was offered platelet transfusion before discharge, but declined as he wants to go home. Given 2 units of blood in anticipation of discharge day beforehand. Medication Changes From Visit -tamulosin, vitamins Admission HPI Per Admitting Provider Mr. Baeza is a 68 year old gentleman with past medical history remarkable for Multiple Myeloma undergoing active treatment s/p ASCT ~2023 (daratumumab, Velcade, dexamethasone), DMTII, HTN, HLD and GERD presented to [facility] ED due to flank pain. Patient states that flank pain started 2 days ago. He tried to "brace through it" but it became more notable. He denies dysuria or other urinary symptoms, but does note that he experienced dark urine. Ultimately, the flank pain became so severe he presented to ED. He denies fevers or chills, however at time of exam noted to have diaphoresis and pallor. Denies constipation, sob, palpitations, chest pain, or other acute concerns In the ED, vitals were notable for BP of 140-180s, HR of 80-90s and O2 sat of 96 on room air Imaging revealed mild hydroureteronephrosis without stone, bilateral perinephric stranding, right iliac lytic lesion ct head w/o bleed, multiple lytic lesions Labs with anemia 10, plt 6, Cr 2.38, glucose 241, calcium 13.1 EKG NSR ED interventions: 2L NS, platelets, calcitonin, zolendric acid, Decadron 40 IV Consultants: Hematology Patient to be admitted to PCU for further evaluation and management of LAURI, thrombocytopenia is Multiple Myeloma Discharge Exam Gen: A&O 3 NAD HEENT: NCAT, EOMI, not icteric. External ears normal. No rhinorrhea. Moist mucous membranes. Neck: Supple, full range of motion, no observable masses, No meningeal sign. Lungs: No Respiratory distress. CV: RRR, no edema. Abdomen: Soft, nondistended, No rebound tenderness. MSK: No joint swelling, no redness. ball noted Skin: No rashes, petechiae, lesions. Normal color per patient. Neuro: Normal Gait, Grossly intact. Psych: Appropriate for situation. Updated Medication List Medication Instructions Recorded Confirmed Type acyclovir 200 mg capsule 400 mg BID 09/07/24 09/07/24 History escitalopram oxalate 20 mg tablet 20 mg DAILY 09/07/24 09/07/24 History glipizide 5 mg tablet, extended 5 mg PO DAILY 09/07/24 09/07/24 History release 24 hr lisinopril 10 mg tablet 10 mg DAILY 09/07/24 09/07/24 History lorazepam 0.5 mg tablet 0.5 mg PM 09/07/24 09/07/24 History metformin 500 mg tablet 500 mg BID 09/07/24 09/07/24 History mirtazapine 15 mg tablet 15 mg PM 09/07/24 09/07/24 History omeprazole 40 mg capsule,delayed 40 mg QAM 09/07/24 09/07/24 History release cyanocobalamin (vitamin B-12) 500 1,000 mcg (2 x 500 mcg) PO QAM #30 09/12/24 Rx mcg tablet tabs folic acid 1 mg tablet 1 mg PO QAM #30 tabs 09/12/24 Rx tamsulosin 0.4 mg capsule 0.4 mg PO QAM #30 caps 09/12/24 Rx Hospital Stay Data Consultations 09/07/24 16:04 ED Decision to Admit Stat 09/07/24 18:39 Consult Hematology Routine 09/07/24 18:46 Consult Urology Routine 09/08/24 14:43 Consult Nephrology Routine 09/09/24 10:18 Consult General Surgery Routine Diagnostic Imagining Performed 09/07/24 14:22 CT abd pelvis wo con Stat 09/07/24 14:23 CT chest diagnostic wo con Stat CT head/brain wo con Stat 09/08/24 15:05 US gallbladder Urgent Pending Results Patient Have Any Pending Studies at Discharge: No Discharge Instructions Given to Patient (Per Discharging Provider) 1. Discussed his current condition and prognosis at length, it is imperative that you establish with oncology and PCP immediately upon return to [place]. 2. Your platelet count is 6, shared decision making about discharge as you would like to return home, you have increased risk of bleeding, please be very careful. 3. Take all medications as prescribed and stay very hydrated. 4. Follow up CBC/BMP in 3 days 5. Please get platelet and blood transfusions as needed. Total Time Total Time Spent Total Time Spent (In Minutes): I spent a total of 35 minutes in direct patient care, including [id number] time with the patient and/or family, reviewing medical records, ordering and reviewing diagnostic tests, and coordinating care with other healthcare jose [place]. This time includes: history taking, physical examination, medical decision making, counseling, ECG interpretation, imaging interpretation, lab interpretation, orders, and education, excluding time spent in the performance of separately billed services.
--- NOTE | 2024-09-12 18:46 | Communication Note ---
Date of Service: September 12, 2024 Pt is for hospital d/c and lives in [facility]. Suggest he f/u w/ nephrology at home after hospital d/c given renal dysfunction which can have multiple causes including from myeloma. He was aware yesterday not to have any more NSAIDS.
== END 2024-09-12 18:46 | disposition home or self-care (01) | DRG 840 ==
LOC: ED 13:23 → SUATTDRO 16:54 → 2S 16:54
DX: K80.20 Calculus of gallbladder without cholecystitis without obstruction; I12.9 Hypertensive chronic kidney disease with stage 1 through stage 4 chronic kidney disease, or unspecified chronic kidney disease; E78.5 Hyperlipidemia, unspecified; C90.00 Multiple myeloma not having achieved remission; F32.A Depression, unspecified; Z79.84 Long term (current) use of oral hypoglycemic drugs; D69.6 Thrombocytopenia, unspecified; E53.8 Deficiency of other specified B group vitamins; D61.89 Other specified aplastic anemias and other bone marrow failure syndromes; G47.00 Insomnia, unspecified; Z88.0 Allergy status to penicillin; Z79.899 Other long term (current) drug therapy; E83.39 Other disorders of phosphorus metabolism; K21.9 Gastro-esophageal reflux disease without esophagitis; E83.42 Hypomagnesemia; N13.2 Hydronephrosis with renal and ureteral calculous obstruction; E11.22 Type 2 diabetes mellitus with diabetic chronic kidney disease; N17.9 Acute kidney failure, unspecified; E83.52 Hypercalcemia; N18.30 Chronic kidney disease, stage 3 unspecified